=== PATIENT | male | born 1950 | race Caucasian/White ===

== ENCOUNTER 2020-04-09 16:03 | Inpatient (IN) | payer MEDICARE ==
--- NOTE | 2000-04-09 18:00 | NUR ---
admit note Received patient from cardiac cath lab radiology technologist via ICU bed awake and oriented x4 , moves arms and legs well, no c/o discomfort or pain, vasc band at right wrist intact and no bleeding, iv infusion via left ac site intact and patent. Patient given urinal to use for voiding and call light to call for nurse, agrees with nurse and still feels sleepy. Positioned for comfort and informed dinner tray will be given to him when tray arrives from the kitchen.
[2020-04-09] VITALS (9 sets, daily range): BP systolic 116–147; BP diastolic 67–94
[~2020-04-09] VITALS: Ht 188 cm; Wt 101.1 kg
[2020-04-09] MEDS ORDERED: HEPARIN SODIUM (PORCINE) 5000 UNITS/ML 1ML VIAL IV ONE (16:15)
[2020-04-09] MEDS ORDERED: HYDROmorphone HCL 2 MG/ML VL IV ONE (16:15)
[2020-04-09] MEDS ORDERED: ONDANSETRON HCL 4 MG/2 ML VIAL IV ONE ×2 (16:15→16:30)
[2020-04-09] MEDS ORDERED: ONDANSETRON HCL 4 MG/2 ML VIAL ONE (16:25)
[2020-04-09] MEDS ORDERED: LACTULOSE 20Gm/30ML SOLN PO PRN (16:30)
[2020-04-09] MEDS ORDERED: ANGIOMAX 250 MG VIAL IV ONE (16:30)
[2020-04-09] MEDS ORDERED: TEMAZEPAM 15 MG CAP PO PRN (16:30)
[2020-04-09] MEDS ORDERED: SODIUM CHLORIDE 0.9% 1,000 ML IV SCH (16:30)
[2020-04-09] MEDS ORDERED: chlordiazePOXIDE HCL 25 MG CAP PO PRN (16:30)
[2020-04-09] MEDS ORDERED: traMADol HCL 50 MG TAB PO PRN (16:30)
[2020-04-09] MEDS ORDERED: PROMETHAZINE HCL 25 MG/ML 1ML IV PRN (16:30)
[2020-04-09] MEDS ORDERED: NITROGLYCERIN 0.4 MG SL TAB SL PRN (16:30)
[2020-04-09] MEDS ORDERED: THIAMINE 100mg/ml INJ (200mg/2ml VIAL) IV ONE (16:30)
[2020-04-09] MEDS ORDERED: IODIXANOL 320MG/ML 100ML BTL IV ONE (16:31)
[2020-04-09] MEDS ORDERED: fentaNYL CITRATE 100 MCG/2 ML VL ONE (16:31)
[2020-04-09] MEDS ORDERED: LIDOCAINE 2%HCL (LOCAL ANESTH.) INJ 20ML MDV ONE (16:31)
[2020-04-09] MEDS ORDERED: SODIUM CHL 0.9% 50 ML ONE (16:31)
[2020-04-09 16:32] LABS: Eosinophils # (auto) 0.3 10 ^3/uL (0-0.8); Hemoglobin 17.8 g/dL (13.5-17.5); Lymphocytes # (auto) 4.6 10 ^3/uL (0.4-5.4); Monocytes # (auto) 0.8 10 ^3/uL (0-1.3)
[2020-04-09] MEDS ORDERED: VERAPAMIL 2.5MG/ML INJ 2ML VIAL IV ONE (16:32)
[2020-04-09] MEDS ORDERED: MIDAZOLAM HCL 1MG/1ML-2 ML VIAL ONE (16:32)
[2020-04-09] MEDS ORDERED: HEPARIN SODIUM (PORCINE) 5000 UNITS/ML 1ML VIAL ONE ×2 (16:33→17:01)
[2020-04-09 16:34] LABS: Basophils # (auto) 0 10 ^3/uL (0-0.2); Basophils % (auto) 0.5 % (0.0-2.0); Eosinophils % (auto) 2.8 % (0.0-7.0); Hematocrit 52.8 % (41.0-53.0); Lymphocytes % (auto) 46.8 % (10.0-50.0); Mean Corpuscular Hemoglobin 31.8 pg (28.0-32.0); Mean Corpuscular Hgb Conc. 33.6 g/dL (32.0-36.0); Mean Corpuscular Volume 94.6 fL (80.0-100.0); Neutrophils # (auto) 4.1 10 ^3/uL (1.6-8.6); Neutrophils % (auto) 41.9 % (37.0-80.0); Nucleated Red Blood Cells % 0.3 %; Platelet Count (auto) 223 10^3/uL (140-450); Red Blood Cells 5.58 10^6/uL (4.5-5.90); White Blood Cell 9.8 10^3/uL (4.4-10.8)
[2020-04-09 16:45] LABS: Partial Thromboplastin Time 25.4 sec (23.0-31.2)
[2020-04-09 16:51] LABS: Albumin 3.6 g/dL (3.4-5.0); Calcium 8.5 mg/dL (8.5-10.1); Magnesium 2.2 mg/dL (1.6-2.6)
[2020-04-09] MEDS ORDERED: diphenhdrAMINE HCL 50 MG/1 ML VL ONE (16:54)
[2020-04-09 16:55] LABS: Bilirubin, Total 0.3 mg/dL (0.2-1.0); Total Protein 7.2 g/dL (6.4-8.2)
[2020-04-09] MEDS ORDERED: EPTIFIBATIDE INJ (2MG/ML) 10ML VIAL IV ONE (17:25)
[2020-04-09] MEDS ORDERED: EPTIFIBATIDE DRIP(0.75MG/ML) 100 ML IV ONE (17:25)
[2020-04-09] MEDS ORDERED: TICAGRELOR 90 MG TAB ONE (17:52)
--- NOTE | 2020-04-09 17:54 | NUR ---
Pt transferred to ICU 101 via bed in stable condition in semi-fowlers position with cardiac,bp and spo2 monitor connected with acls guidelines in place. Pt on 8lpm of 02 via simple mask. Vasc band noted to right wrist with no active bleeding or hematoma noted. Pt denies pain and respirations are even and unlabored. Pt arrived with integrilin gtt infusing at 15ml/hr. Primary RN at bedside and was updated on pt's current condition and operative findings. All questions answered at this time.
[2020-04-09] MEDS ORDERED: ASPirin 81 mg TAB PO ONE (18:00)
[2020-04-09] MEDS ORDERED: SOD CHL 0.45% 1,000 ML IV SCH (18:00)
[2020-04-09] MEDS ORDERED: TICAGRELOR 90 MG TAB PO ONE (18:00)
--- NOTE | 2020-04-09 19:30 | NUR ---
rn note Report to incoming RN Kenisha and all questions answered.
--- NOTE | 2020-04-09 20:00 | NUR ---
Vasc band deflated w/ 2ml air, bleeding on the site noted and reinflated again with about 5ml air
[2020-04-09] MEDS: HYDROmorphone HCL 2 MG/ML VL IV PRN (20:37)
[2020-04-09] MEDS: chlordiazePOXIDE HCL 5 MG CAP PO SCH (20:38)
--- NOTE | 2020-04-09 21:00 | NUR ---
Deflated vasc band every 15 min until no visible signs of bleeding noted, removed band and covered with gauze dressing with tegaderm. No bruise or other signs of bleeding noted, no complaints made. Instructed to avoid using affected limb
[2020-04-09] MEDS: ENOXAPARIN SOD 100 MG/1 ML SYRINGE SC SCH (21:34)
[2020-04-09] MEDS: ALPRAZolam 0.25 MG TAB PO SCH (21:34)
[2020-04-09] MEDS: ATORVASTATIN 20 MG TAB PO SCH (21:35)
[2020-04-09] MEDS ORDERED: METOPROLOL TARTRATE 25 MG TAB PO SCH (22:00)
[2020-04-09] MEDS ORDERED: ATORVASTATIN 20 MG TAB PO SCH (22:00)
[2020-04-09] MEDS: CARVEDILOL 3.125 MG TAB PO SCH (22:32)
[2020-04-09] MEDS: EPTIFIBATIDE DRIP(0.75MG/ML) 100 ML IV SCH (22:32)
[2020-04-10] VITALS (30 sets, daily range): BP systolic 103–145; BP diastolic 60–90
--- NOTE | 2020-04-10 00:10 | NUR ---
Dtr called, updated on pt's status. all questions and concerns were addressed, verbalized understanding
[2020-04-10] MEDS: EPTIFIBATIDE DRIP(0.75MG/ML) 100 ML IV SCH (00:40)
[2020-04-10] MEDS: HYDROmorphone HCL 2 MG/ML VL IV PRN ×4 (01:03→21:36)
[2020-04-10 04:34] LABS: Basophils # (auto) 0 10 ^3/uL (0-0.2); Basophils % (auto) 0.2 % (0.0-2.0); Eosinophils # (auto) 0.1 10 ^3/uL (0-0.8); Eosinophils % (auto) 0.9 % (0.0-7.0); Hematocrit 50.8 % (41.0-53.0); Hemoglobin 17.2 g/dL (13.5-17.5); Lymphocytes % (auto) 20.8 % (10.0-50.0); Mean Corpuscular Hemoglobin 32.5 pg (28.0-32.0); Mean Corpuscular Hgb Conc. 33.8 g/dL (32.0-36.0); Mean Corpuscular Volume 95.9 fL (80.0-100.0); Monocytes # (auto) 0.8 10 ^3/uL (0-1.3); Monocytes % (auto) 7.9 % (0.0-12.0); Neutrophils # (auto) 6.9 10 ^3/uL (1.6-8.6); Neutrophils % (auto) 70.2 % (37.0-80.0); Platelet Count (auto) 208 10^3/uL (140-450); White Blood Cell 9.9 10^3/uL (4.4-10.8)
[2020-04-10 04:54] LABS: Potassium 4.6 mmol/L (3.5-5.1)
[2020-04-10 05:05] LABS: Albumin 3.3 g/dL (3.4-5.0); BUN/Creatinine Ratio 21.1; Bilirubin, Total 0.4 mg/dL (0.2-1.0); Calcium 8.3 mg/dL (8.5-10.1); Total Protein 6.6 g/dL (6.4-8.2)
[2020-04-10] MEDS: chlordiazePOXIDE HCL 5 MG CAP PO SCH ×3 (05:44→12:25)
[2020-04-10] MEDS: TICAGRELOR 90 MG TAB PO SCH ×2 (05:45→17:29)
[2020-04-10] MEDS: ALPRAZolam 0.25 MG TAB PO SCH ×3 (06:00→21:36)
--- NOTE | 2020-04-10 06:00 | NUR ---
Intergrilin drip off as ordered
--- NOTE | 2020-04-10 07:05 | NUR ---
Paged the hospitalist for breathing tx, per pt he is receiving breathing tx at home, received an order from Dr. Coe for bairon alicea. RN and RT aware
--- NOTE | 2020-04-10 07:15 | NUR ---
Start of Shift Received patient awake and cooperative, blood drawn by medical laboratory scientist, positioned sitting up for breakfast, no pain or discomfort, asking for neb treatment and respiratory called for ordered treatment.
[2020-04-10] MEDS ORDERED: ALBUTEROL SULF 2.5 MG/0.5ML(0.5%) NEB SOLN ONE (07:47)
[2020-04-10] MEDS ORDERED: IPRATROPIUM BROM 0.5 MG/2.5ML INH SOL ONE (07:47)
[2020-04-10] MEDS: IPRATROPIUM BROM 0.5 MG/2.5ML INH SOL NEB PRN ×2 (07:50→20:48)
[2020-04-10] MEDS: ALBUTEROL SULF 2.5 MG/0.5ML(0.5%) NEB SOLN NEB PRN ×2 (07:50→20:49)
[2020-04-10] MEDS ORDERED: ASPirin 81 mg TAB PO SCH (10:00)
[2020-04-10] MEDS ORDERED: ENALAPRIL MALEATE 2.5 MG TAB PO SCH (10:00)
[2020-04-10] MEDS ORDERED: NITROGLYCERIN 0.2MG/HR TOPICAL PATCH TD SCH (10:00)
[2020-04-10] MEDS: LISINOPRIL 10 MG TAB PO SCH (10:00)
[2020-04-10] MEDS: CARVEDILOL 3.125 MG TAB PO SCH (10:00)
[2020-04-10] MEDS: THIAMINE 100mg/ml INJ (200mg/2ml VIAL) IV SCH (10:07)
[2020-04-10] MEDS: ASPirin 81 mg TAB PO SCH (10:07)
[2020-04-10] MEDS: PANTOPRAZOLE 40 MG TAB PO SCH (10:08)
[2020-04-10] MEDS: ENOXAPARIN SOD 100 MG/1 ML SYRINGE SC SCH (10:08)
[2020-04-10] MEDS ORDERED: NICOTINE 21MG/24 HR TOPICAL PATCH TD ONE (12:45)
--- NOTE | 2020-04-10 13:00 | NUR ---
RN NOTES ATTENDING DOCTOR ON ROUNDS AND GAVE ORDER TO TRANSFER PATIENT TO TELEMETRY FLOOR, REMAINS STABLE, ALERT AND ORIENTATED X4, TOLRATING MEALS WELL AND AMBULATION TO COMMODE. HAD BM TODAY.
--- NOTE | 2020-04-10 15:00 | NUR ---
RN NOTES PATIENT GETTING BORED IN THE ROOM, OUT OF BED TO CHAIR, AWARE HE'S WAITING FOR TELEMETRY BED.
--- NOTE | 2020-04-10 16:30 | NUR ---
TRANSFER NOTE ROOM ASSIGNMENT NOTED AT 291 B, REPORT CALLED TO DEBBIE MCGOVERN.
--- NOTE | 2020-04-10 16:45 | NUR ---
TRANSFER NOTES PATIENT PLACED ON TELEMETRY PACK, TO ROOM 291 B VIA WHEEL CHAIR WITH O2 ON AT 2L/MINUTE, REPORT TO DEBBIE SALAS AT TELE FLOOR.
--- NOTE | 2020-04-10 19:30 | NUR ---
Opening Shift Note Assumed care of patient, awake and alert. No S/S of distress/SOB. Fall and safety precautions in place. Call light within reach and to use. Instructed on POC and to call for assist PRN, patient verbalized understanding and in agreement. Will continue to monitor for changes Q1hr and PRN.
[2020-04-10] MEDS: ATORVASTATIN 20 MG TAB PO SCH (21:36)
[2020-04-11 05:00] VITALS: BP 122/67
[2020-04-11] MEDS: TICAGRELOR 90 MG TAB PO SCH (05:36)
[2020-04-11] MEDS: ALPRAZolam 0.25 MG TAB PO SCH (05:36)
--- NOTE | 2020-04-11 08:00 | NUR ---
Received pt resting in bed, call light within reach, pt denies any pain or discomfort at this time, rt wrist incision site open to air, no bruising or swelling noticed, will continue to monitor pt.
[2020-04-11 09:00] VITALS: BP 139/73
[2020-04-11] MEDS: PANTOPRAZOLE 40 MG TAB PO SCH (09:46)
[2020-04-11] MEDS: LISINOPRIL 10 MG TAB PO SCH (09:46)
[2020-04-11] MEDS: THIAMINE 100mg/ml INJ (200mg/2ml VIAL) IV SCH (09:46)
[2020-04-11] MEDS: ASPirin 81 mg TAB PO SCH (09:46)
[2020-04-11] MEDS ORDERED: NICOTINE 21MG/24 HR TOPICAL PATCH TD SCH (10:00)
--- NOTE | 2020-04-11 10:14 | NUR ---
Respiratory note: ASSESSED PT FOR PRN TX, PT WAS AWAKE AND ALERT, NO RESP DISTRESS NOTED. HR 91, RR 16, SPO2 94% ON ROOM AIR. BS ARE DIMINISHED. PT STATED THAT HE DOES NOT FEEL ANY DIFFERENCE WITH ALBUTEROL AND ATROVENT. PT STATED HE USES FLOWVENT INHALER AT HOME. PT IS AWARE TO HAVE RT PAGED IF TX IS NEEDED.
[2020-04-11] MEDS ORDERED: FLU220IH INH (12:35)
[2020-04-11] MEDS ORDERED: IBUP800T24 PO (12:35)
[2020-04-11] MEDS ORDERED: ALPR0.25 PO (12:35)
[2020-04-11 14:09] VITALS: BP 139/73
--- NOTE | 2020-04-11 14:45 | NUR ---
Discharge instructions given as ordered. Encourage to follow up with PMD and with the barometers calibrator Dr. Campuzano as instructed. All questions and concerns addressed. Patient verbalized understanding. Medication reconciliation form completed and copy given to patient. No home medications held in Pharmacy, and no needed vaccines to be given. IV removed with catheter intact, pressure dressing applied. Telemetry unit returned to ICU.
--- NOTE | 2020-04-11 14:53 | NUR ---
Called to [facility] at [phone] to call in pt's prescription as per pt's request, called in Atorvastatin, metoprolol XL succunate, lisinopril, and ticagrelor.
--- NOTE | 2020-04-11 14:53 | NUR ---
Pt stated that his ride will take him to picker tender his prescription and wants the prescription to be called in to [facility], prescription called in at [phone], pt given the prescription as well, unable to get [facility] at [facility], [facility] pharmacy is closed for Sundays.
--- NOTE | 2020-04-11 14:58 | NUR ---
Patient walked out of the hospital with all personal belongings, accompanied by staff member. No distress noted at time of departure.
== END 2020-04-11 14:58 | disposition home or self-care (01) | DRG 247 ==
LOC: ER 16:03 → EDBD 16:03 → EDUNIT# 16:03 → CATH 1 16:14 → ICU WEST 16:15 → TELE-WESTW 04-10 16:53
PROVIDERS: ADMIT Internal Medicine; ATTEND Internal Medicine
PROC: 4A023N7 Measurement of Cardiac Sampling and Pressure, Left Heart, Percutaneous Approach (ICD-10-PCS; principal; 2020-04-09)
PROC: 027034Z Dilation of Coronary Artery, One Artery with Drug-eluting Intraluminal Device, Percutaneous Approach (ICD-10-PCS; 2020-04-09)
PROC: B211YZZ Fluoroscopy of Multiple Coronary Arteries using Other Contrast (ICD-10-PCS; 2020-04-09)
PROC: B215YZZ Fluoroscopy of Left Heart using Other Contrast (ICD-10-PCS; 2020-04-09)
DX: I21.19 ST elevation (STEMI) myocardial infarction involving other coronary artery of inferior wall (principal); J44.9 Chronic obstructive pulmonary disease, unspecified; I10 Essential (primary) hypertension; F41.9 Anxiety disorder, unspecified; F10.10 Alcohol abuse, uncomplicated; F17.200 Nicotine dependence, unspecified, uncomplicated; E66.3 Overweight; Z79.82 Long term (current) use of aspirin; Z79.899 Other long term (current) drug therapy; Z82.49 Family history of ischemic heart disease and other diseases of the circulatory system; Z79.02 Long term (current) use of antithrombotics/antiplatelets; Z68.28 Body mass index [BMI] 28.0-28.9, adult; E78.5 Hyperlipidemia, unspecified
CPT/HCPCS: 36415; 71045; 80053; 80061; 83735; 84484; 85025; 85610; 85730; 87081; 92928; 93306; 93458; 94640; 96374; 96375; 99152; 99153; 99291; A4565; C1874; C1887; G0378; J2250; J2405; Q9967

== ENCOUNTER 2024-07-13 14:11 | Inpatient (IN) | payer MEDICARE, OTHER ==
[2024-07-13] VITALS (7 sets, daily range): BP systolic 95–123; BP diastolic 61–73; PULSE 107–126; RESP 18–20; TEMP 99.2; O2SAT 92–95
[~2024-07-13] VITALS: Ht 180.3 cm; Wt 98.5 kg
[~2024-07-13 14:11] MED LIST: ALPR0.25 PO; FLU220IH INH; IBUP-1456 PO
[2024-07-13] MEDS: methylPREDNISolone SOD SUCC 125 MG/2 ML VL IV ONE ×2 (14:23→23:47)
[2024-07-13] MEDS: methylPREDNISolone SOD SUCC 125 MG/2 ML VL ONE (14:25)
[2024-07-13] MEDS: IPRATROPIUM BROM 0.5 MG/2.5ML INH SOL NEB ONE (14:36)
[2024-07-13] MEDS: ALBUTEROL SULF 2.5 MG/0.5ML(0.5%) NEB SOLN NEB ONE (14:36)
--- NOTE | 2024-07-13 14:44 | ED.PDOC ---
History of Present Illness HPI Comments 74 y/o M is BIBA for c/o shortness of breath, today. Per EMS report, patient endorses on unprovoked onset of difficulty breathing, last night, that has been progressively worsening since, with no relief or improvement with home O2 use. On scene, patient was found on his home O2, with diminished bilateral lung sounds and wheezing. En route, patient was given DuoNeb breathing Tx and placed on 5LPM on CPAP, with improvement. At time of assessment, patient reports no recent injuries, strenuous activities, sick contact, travel, or any additional relevant or pertinent Hx, aside from using 5LPM and 3LPM on his portable and compressor O2 devices, respectively. He denies having any chest pain, palpitations, cough, fever, chills, or other associated symptoms or modifiers at this time. Time Seen by MD: 14:15 Reviewed Notes: Nurses Notes, Home Theater Expert Notes, Medications, Allergies Allergies: Coded Allergies: Morphine (Verified Allergy, Unknown, 04/09/20) Home Meds Reported Medications Ibuprofen (Ibuprofen) 800 Mg Tab, 800 MG PO DAILYP PRN for PAIN SCALE 1-3 OR TEMP>100.4, MG 04/11/20 Alprazolam (Xanax) 0.25 Mg Tb, 0.5 TAB PO DAILY, #30 TAB 04/11/20 Fluticasone Propionate (Flovent Hfa) 220 Mcg Aer, 220 MCG INH Q12HR for 30 Days, MCG 04/11/20 Information Source: Patient, Emergency Med Personnel Mode of Arrival: EMS Severity: Moderate Timing: Days Duration: Since onset Prehospital treatment: 12 Lead EKG, Breathing Tx, Ship Boss, C-Pap, Oxygen Past Medical History PAST MEDICAL HISTORY: Anxiety, COPD, High Lipids, HTN, [place] Surgical History: PTCA Social History Smoker: Quit Less Than 1 Year Alcohol: Occasionally Drugs: Denies Drug Use Lives In: Home Respiratory: reports: shortness of breath All Other Systems: Reviewed and Negative (negative unless otherwise stated above or in HPI) Physical Exam General Appearance: No Apparent Distress, Normal HEENT: Normal ENT Inspection, Pharynx Normal, TMs Normal Neck: Full Range of Motion, Non-Tender, Normal, Normal Inspection Respiratory: Chest Non-Tender, Decreased Breath Sounds (bilaterally), No Accessory Muscle Use, Wheezing (bilaterally) Cardiovascular: No Edema, No JVD, No Murmur, No Gallop, Normal Peripheral Pulses, Regular Rate/Rhythm Breast Exam: Deferred Gastrointestinal: No Organomegaly, Non Tender, No Pulsatile Mass, Normal Bowel Sounds, Soft Genitalia: Deferred Pelvic: Deferred Rectal: Deferred Extremities: No calf tenderness, Normal capillary refill, Normal inspection, Normal range of motion, Non-tender, No pedal edema Musculoskeletal : Apperance: Normal Neurologic: Alert, stoker erector II-XII nml as Tested, No Motor Deficits, Normal Affect, Normal Mood, No Sensory Deficits Cerebellar Function: Normal Reflexes: Normal Skin: Dry, Normal Color, Warm Lymphatic: No Adenopathy Was a procedure done? Was a procedure done?: No EKG EKG : Pulse Rate (adult): 137 [place]: RAD Cardiac Rhythm: ST Block: None Hypertrophy: None ST: Normal Differential Dx Considerations may include: COPD exacerbation, URI, PNA, bronchitis, viral syndrome X-Ray, Labs, Meds, VS Vital Signs Date Time Temp Pulse Resp B/P (MAP) Pulse Ox O2 Delivery O2 Flow Rate FiO2 07/13/24 16:34 118 123/74 Facial BiPAP Mask 40 07/13/24 14:44 137 07/13/24 14:43 18 94 Bi-Pap+ 40 40 07/13/24 14:37 133 128/78 Facial BiPAP Mask 40 07/13/24 14:30 126 18 92 Room Air* 0 21 07/13/24 14:30 97.8 129 18 128/78 (95) 92 97.8 07/13/24 14:28 98.7 135 30 147/72 (97) 82 07/13/24 14:20 137 Lab Test 07/13/24 16:42 07/13/24 16:02 07/13/24 15:18 Range/Units Troponin I High Sensitivity Pending 11 </=54 ng/L Blood Gas Specimen Type Venous Blood Gas Sample Site Other Blood Gas Patient Temperature 37.0 Arterial Blood Date Drawn [id number] Isaiah Test N/a Venous Blood pH 7.345 7.320-7.430 Venous Blood pCO2 at Patient Temp 52.7 38.0-54.0 mmHg Venous Blood pO2 at Patient Temp < 36.5 23.0-48.0 mmHg Venous Blood HCO3 28.1 22.0-29.0 mmol/L Venous Blood Base Excess 1.4 -2.0-3.0 mmol/L Blood Gas Liter Flow 2.50 Blood Gas Modality Nasal cannula FiO2 % 30.0 White Blood Count 10.0 4.4-10.8 10^3/uL Red Blood Count 5.32 4.5-5.90 10^6/uL Hemoglobin 17.4 13.5-17.5 g/dL Hematocrit 51.8 41.0-53.0 % Mean Corpuscular Volume 97.4 80.0-100.0 fL Mean Corpuscular Hemoglobin 32.8 H 28.0-32.0 pg Mean Corpuscular Hemoglobin Concent 33.6 32.0-36.0 g/dL Red Cell Distribution Width 14.0 11.8-14.3 % Platelet Count 197 140-450 10^3/uL Mean Platelet Volume 7.9 6.9-10.8 fL Neutrophils (%) (Auto) 88.1 H 37.0-80.0 % Lymphocytes (%) (Auto) 4.9 L 10.0-50.0 % Monocytes (%) (Auto) 6.9 0.0-12.0 % Eosinophils (%) (Auto) 0.0 0.0-7.0 % Basophils (%) (Auto) 0.1 0.0-2.0 % Neutrophils # (Auto) 8.8 H 1.6-8.6 10 ^3/uL Lymphocytes # (Auto) 0.5 0.4-5.4 10 ^3/uL Monocytes # (Auto) 0.7 0-1.3 10 ^3/uL Eosinophils # (Auto) 0 0-0.8 10 ^3/uL Basophils # (Auto) 0 0-0.2 10 ^3/uL Nucleated Red Blood Cells 0.1 % Sodium Level 134 L 136-145 mmol/L Potassium Level 4.5 3.5-5.1 mmol/L Chloride Level 97 L 98-107 mmol/L Carbon Dioxide Level 30 20-31 mmol/L Anion Gap 7 5-15 Blood Urea Nitrogen 21 9-23 mg/dL Creatinine 0.93 0.700-1.30 mg/dL Glomerular Filtration Rate Calc 87 >90 mL/min BUN/Creatinine Ratio 22.6 H 10.0-20.0 Serum Glucose 105 74-106 mg/dL Calcium Level 9.7 8.7-10.4 mg/dL Total Bilirubin 1.0 0.2-1.0 mg/dL Aspartate Amino Transferase (AST) 33 13-40 U/L Alanine Aminotransferase (ALT) 29 7-40 U/L Alkaline Phosphatase 135 H 46-116 U/L B-Type Natriuretic Peptide 29.00 0-100 pg/mL Total Protein 7.4 5.7-8.2 g/dL Albumin 4.7 3.2-4.8 g/dL Current Medications Medications (Trade) Dose Ordered Sig/Grace Route Start Time Stop Time Status Last Admin Albuterol (Ventolin Medneb) 5 mg ONCE ONCE NEB 07/13/24 14:30 07/13/24 14:31 DC 07/13/24 14:36 Ipratropium Douglas (Atrovent Medneb) 0.5 mg ONCE ONCE NEB 07/13/24 14:30 07/13/24 14:31 DC 07/13/24 14:36 Methylprednisolone Sodium Succinate (Solu Medrol) 62.5 mg ONCE ONCE IV 07/13/24 14:30 07/13/24 14:31 DC 07/13/24 14:23 Azithromycin 250 ml @ 125 mls/hr ONCE ONCE IV 07/13/24 14:30 07/13/24 16:29 DC 07/13/24 14:55 Ondansetron HCl (Zofran) 4 mg ONCE ONCE IV 07/13/24 15:30 07/13/24 15:31 DC 07/13/24 15:23 Time of 1ST Reevaluation: 14:45 Reevaluation 1ST: Unchanged Patient Education/Counseling: Diagnosis, Treatment Family Education/Counseling: No Family Present Additional Information I reviewed the following notes from patient's past medical encounters: discharge summary report on 04/11/20 The following tests were ordered, and results were reviewed by me: EKG, CXR, CMP, CBC, BETA QUANT, BNP Additional Information was gathered from interviewing the following independent historians: EMT I reviewed and agreed with the following test results read by other providers: CXR I discussed treatment and results with medical personnel Departure 1 Departure Time of Disposition: 17:04 (Patient presented with acute shortness of breath concerning for acute on chronic COPD Exacerbation, Pneumonia, ACS, CHF, Pneumothorax. Less likely PE, Dissection. Data: 1. I ordered and reviewed the result of at least 3 labs including a CBC, BMP, and Troponin. 2. I independently interpreted the following tests: Chest X-ray shows .Risk:This patient has a high risk of morbidity due to further diagnostic testing or treatment and may suffer from respiratory or cardiac etiology . Workup reveals a likely COPD Exacerbation and patient should be admitted for further workup. and possible expert consultation.) Impression: Primary Impression: Acute respiratory failure Qualified Codes: J96.01 - Acute respiratory failure with hypoxia Additional Impression: COPD exacerbation Disposition: ADMITTED INPATIENT Admit to: Med Surg Condition: Serious Critical Care Note Critical Care Time?: Yes Critical care comment: Acute respiratory failure Authorized and Performed by: Geeta Chavira MD Total critical care time: Approximately 38 minutes Due to a high probability of clinically significant, life threatening deterioration, the patient required my highest level of preparedness to intervene emergently and I personally spent this critical care time directly and personally managing the patient. This critical care time included obtaining a history; examining the patient; pulse oximetry; ordering and review of studies; arranging urgent treatment with development of a management plan; evaluation of patient's response to treatment; frequent reassessment; and, discussions with other providers. This critical care time was performed to assess and manage the high probability of imminent, life-threatening deterioration that could result in multi-organ failure. It was exclusive of separately billable procedures and treating other patients and teaching time. Please see my other sections and the rest of the note for further information on patient assessment and treatment. Stability Stability form required: No Heart Score Heart Score: Heart Score Response (Comments) Value History N/A 0 EKG N/A 0 Age N/A 0 Risk Factors N/A 0 Troponin N/A 0 Total 0 I personally scribed for GEETA CHAVIRA MD ([email or web address]) on 07/13/24 at 14:44. Electronically submitted by Antonio Garcia [email or web address]). GEETA CHAVIRA MD Jul 13, 2024 14:44
[2024-07-13] MEDS: AZITHROMYCIN 500MG/ 250ML 250 ML IV ONE (14:55)
--- NOTE | 2024-07-13 15:03 | DVH ---
CHEST RADIOGRAPH Indication: sob Technique: Single frontal view of the chest was obtained Comparison: CHEST PORTABLE on DOS: 04/09/20 FINDINGS: Lines and Tubes: None Lungs: No focal consolidation. Bibasilar curvilinear densities. Pleura: No effusion. No pneumothorax. Cardiomediastinal contours: Unremarkable Bones: No acute osseous abnormality. IMPRESSION: Bibasilar atelectasis. Otherwise, no evidence of acute cardiopulmonary disease.
[2024-07-13] MEDS: ONDANSETRON HCL 4 MG/2 ML VIAL IV ONE (15:23)
[2024-07-13 15:48] LABS: Basophils # (auto) 0 10 ^3/uL (0-0.2); Basophils % (auto) 0.1 % (0.0-2.0); Eosinophils # (auto) 0 10 ^3/uL (0-0.8); Hematocrit 51.8 % (41.0-53.0); Hemoglobin 17.4 g/dL (13.5-17.5); Lymphocytes # (auto) 0.5 10 ^3/uL (0.4-5.4); Lymphocytes % (auto) 4.9 % (10.0-50.0); Mean Corpuscular Hemoglobin 32.8 pg (28.0-32.0); Mean Corpuscular Hgb Conc. 33.6 g/dL (32.0-36.0); Mean Corpuscular Volume 97.4 fL (80.0-100.0); Monocytes # (auto) 0.7 10 ^3/uL (0-1.3); Monocytes % (auto) 6.9 % (0.0-12.0); Neutrophils # (auto) 8.8 10 ^3/uL (1.6-8.6); Neutrophils % (auto) 88.1 % (37.0-80.0); Nucleated Red Blood Cells % 0.1 %; Platelet Count (auto) 197 10^3/uL (140-450); Red Blood Cells 5.32 10^6/uL (4.5-5.90)
[2024-07-13 15:54] LABS: Alanine Aminotransferase 29 U/L (7-40); Albumin 4.7 g/dL (3.2-4.8); Anion Gap 7 (5-15); Aspartate Aminotransferase 33 U/L (13-40); BUN/Creatinine Ratio 22.6 (10.0-20.0); Blood Urea Nitrogen 21 mg/dL (9-23); Calcium 9.7 mg/dL (8.7-10.4); Carbon Dioxide 30 mmol/L (20-31); Glucose 105 mg/dL (74-106); Potassium 4.5 mmol/L (3.5-5.1); Total Protein 7.4 g/dL (5.7-8.2)
[2024-07-13 16:13] LABS: Alkaline Phosphatase 135 U/L (46-116); Chloride 97 mmol/L (98-107); Sodium 134 mmol/L (136-145)
[2024-07-13] MEDS ORDERED: ONDANSETRON HCL 4 MG/2 ML VIAL IV ONE (18:15)
[2024-07-13] MEDS ORDERED: MORPHINE SULFATE 4 MG/ML SYR/VIAL IV ONE (18:15)
[2024-07-13] MEDS: KETOROLAC TROMETH 30 MG/ML 1ML VIAL IV ONE (18:31)
[2024-07-13 23:53] LABS: Base Excess -0.2 mmol/L (-2.0-3.0)
[2024-07-14] VITALS (16 sets, daily range): BP systolic 110–127; BP diastolic 48–80; PULSE 94–150; RESP 14–22; O2SAT 89–96
[2024-07-14] MEDS: OXYCODONE W/ ACETAMINOPHEN 5/325MG TABLET PO ONE (00:04)
[2024-07-14] MEDS: IPRATROPIUM BROM 0.5 MG/2.5ML INH SOL NEB ONE (00:16)
[2024-07-14] MEDS: ALBUTEROL SULF 2.5 MG/0.5ML(0.5%) NEB SOLN NEB ONE ×2 (00:16→08:46)
[2024-07-14 01:02] LABS: COVID19 ANTIGEN SOFIA FIA NEGATIVE (NEGATIVE); Rapid Influenza A Negative (Negative); Rapid Influenza B Negative (Negative)
[2024-07-14 01:47] LABS: Basophils # (auto) 0 10 ^3/uL (0-0.2); Basophils % (auto) 0.1 % (0.0-2.0); Eosinophils # (auto) 0 10 ^3/uL (0-0.8); Hematocrit 49.9 % (41.0-53.0); Hemoglobin 16.6 g/dL (13.5-17.5); Lymphocytes # (auto) 0.4 10 ^3/uL (0.4-5.4); Lymphocytes % (auto) 4.8 % (10.0-50.0); Mean Corpuscular Hemoglobin 32.5 pg (28.0-32.0); Mean Corpuscular Hgb Conc. 33.2 g/dL (32.0-36.0); Mean Corpuscular Volume 98.1 fL (80.0-100.0); Monocytes # (auto) 0.3 10 ^3/uL (0-1.3); Monocytes % (auto) 3.6 % (0.0-12.0); Neutrophils # (auto) 8.4 10 ^3/uL (1.6-8.6); Neutrophils % (auto) 91.5 % (37.0-80.0); Platelet Count (auto) 168 10^3/uL (140-450); Red Blood Cells 5.09 10^6/uL (4.5-5.90); Red Cell Distribution Width 14.1 % (11.8-14.3); White Blood Cell 9.2 10^3/uL (4.4-10.8)
[2024-07-14 01:59] LABS: Alanine Aminotransferase 29 U/L (7-40); Anion Gap 8 (5-15); Aspartate Aminotransferase 38 U/L (13-40); BUN/Creatinine Ratio 27.4 (10.0-20.0); Calcium 9.4 mg/dL (8.7-10.4); Carbon Dioxide 27 mmol/L (20-31); Chloride 99 mmol/L (98-107); Potassium 4.8 mmol/L (3.5-5.1)
[2024-07-14 02:00] LABS: Albumin 4.4 g/dL (3.2-4.8); Bilirubin, Total 0.7 mg/dL (0.2-1.0)
[2024-07-14] MEDS ORDERED: hydrALAZINE HCL 20 MG/ML VL IV PRN (02:00)
[2024-07-14 02:02] LABS: Alkaline Phosphatase 120 U/L (46-116); Blood Urea Nitrogen 26 mg/dL (9-23); Glucose 152 mg/dL (74-106); Sodium 134 mmol/L (136-145)
[2024-07-14] MEDS: IPRATROPIUM BROM 0.5 MG/2.5ML INH SOL NEB SCH (02:39)
[2024-07-14] MEDS: ALBUTEROL SULF 2.5 MG/0.5ML(0.5%) NEB SOLN NEB SCH (02:39)
--- NOTE | 2024-07-14 03:39 | DVHHPRES ---
History of Present Illness Resident Creating Document: HEMANTHHARISHAMADO RESIDENT History of Present Illness Patient is a 74-year-old male with a past medical history of ME in 2020 s/p PTCA 1 stent, COPD stage IV, chronic pain, osteoarthritis came to the ED with a chief complaint of worsening shortness of breath. Patient reports since the last 2 months he has been having shortness of breath which he manages with as needed nebulizer 3 times a day which was working for him till 3-4 days ago with the shortness of breath worsened and patient did not get relieved from with the nebulizer. Patient came to the hospital today SpO2 on arrival was 82% in the patient was put on nasal cannula, SpO2 was still low and the patient was put on a BiPAP. Chest x-ray shows hyperinflation of the lungs. WBC 16187 with left shift, COVID and influenza were negative. Past medical history:ME in 2019 s/p PTCA 1 stent, COPD stage IV, chronic pain, osteoarthritis Past surgical history: Surgery for perforated colon, inguinal hernia, craniotomy, PTCA X 1 Social history: Patient has a 55 pack year smoking history but now smokes about 3-4 cigarettes per day, drinks beer about 2-3 times in a week, denies drugs Home medications: Lisinopril 2.5 mg, atorvastatin 40 mg, duloxetine, Percocet, bisoprolol Review of Systems Review of Systems Patient reports feeling better since the time he has been BiPAP. Reports feeling uncomfortable on the bed with back pain. Denies headache, chest pain, dizziness. Denies dysuria, abdominal pain nausea, vomiting, diarrhea Allergies: Coded Allergies: Morphine (Verified Allergy, Unknown, 04/09/20) Medications Current Medications Medications Dose Ordered Sig/Grace Route Start Time Stop Time Status Last Admin Dose Admin Albuterol 2.5 mg Q4HR NEB 07/14/24 02:00 07/14/24 02:39 2.5 MG Ipratropium Muse 0.5 mg Q4HR NEB 07/14/24 02:00 07/14/24 02:39 0.5 MG Methylprednisolone Sodium Succinate 40 mg BID IV 07/14/24 10:00 Levofloxacin/ Dextrose 150 ml @ 100 mls/hr DAILY IV 07/14/24 10:00 Oxycodone/ Acetaminophen 1 tab Q4HP PRN PO 07/14/24 02:00 Duloxetine HCl 30 mg DAILY PO 07/14/24 10:00 Atorvastatin Calcium 40 mg HS PO 07/14/24 22:00 Hydralazine HCl 10 mg Q6HP PRN IV 07/14/24 02:00 Exam Vital Signs Vital Signs Date Time Temp Pulse Resp B/P (MAP) Pulse Ox O2 Delivery O2 Flow Rate FiO2 07/14/24 02:39 94 124/60 93 Facial BiPAP Mask 40 07/14/24 00:00 18 07/13/24 21:18 99.2 99.2 07/13/24 20:33 4 Exam Physical Examination Constitutional: Patient is alert and oriented to time, place and person and appears to be in acute respiratory distress with the use of accessory muscles of respiration and increased work of breathing on BiPAP. Gen - no pallor, no icterus, no cyanosis, no clubbing, no LAD, no edema . Skin - Patients skin is warm and dry. HEENT - normocephalic, atraumatic, dry mucous membranes. Neck - full ROM, no LAD, no JVD Pulmonary - breath sounds severely diminished bilaterally ( like a silent chest ) , no wheezing heard. cardiovascular - faint S1,S2 heard. peripheral pulses radial 2+, pedal 1+. GI - soft abdomen without tenderness to palpation . no hepatospleenomegaly. Bowel sounds normoactive Neurological - Bilateral upper extremity strength 5/5, bilateral lower extremity strength 5/5, no facial droop, normal speech, no tremor, no sensory deficiets. Labs/Xrays Labs Test 07/14/24 01:43 07/14/24 01:28 07/14/24 00:18 07/13/24 23:41 Range/Units Blood Gas Specimen Type Arterial Blood Gas Sample Site Right radial Blood Gas Patient Temperature 37.0 Arterial Blood Date Drawn [id number] Arterial Blood pH 7.283 L 7.350-7.450 Arterial Blood Partial Pressure CO2 64.5 *H 35.0-48.0 mmHg Arterial Blood Partial Pressure O2 92.6 83.0-108.0 mmHg Arterial Blood HCO3 29.8 H 21.0-28.0 mmol/L Arterial Blood Oxygen Saturation 96.4 94.0-98.0 % Arterial Blood Base Excess 1.0 -2.0-3.0 mmol/L Arterial Blood Oxyhemoglobin 95.0 94.0-98.0 % Arterial Blood Carboxyhemoglobin 0.9 0.5-1.5 % Arterial Blood Methemoglobin 0.6 0.0-1.5 % Isaiah Test Modified Blood Gas Total Hemoglobin 17.10 13.5-17.5 g/dL Blood Gas Set Respiration Rate 15.0 Blood Gas Modality Mask - bipap FiO2 % 40.0 Blood Gas EPAP 5 Blood Gas IPAP 15 Blood Gas Critical Value Read Back Yes Blood Gas Notified Whom kishan Ventura md Blood Gas Notified Time [id number] Blood Gas Notified By phan Ramirez rrt White Blood Count 9.2 4.4-10.8 10^3/uL Red Blood Count 5.09 4.5-5.90 10^6/uL Hemoglobin 16.6 13.5-17.5 g/dL Hematocrit 49.9 41.0-53.0 % Mean Corpuscular Volume 98.1 80.0-100.0 fL Mean Corpuscular Hemoglobin 32.5 H 28.0-32.0 pg Mean Corpuscular Hemoglobin Concent 33.2 32.0-36.0 g/dL Red Cell Distribution Width 14.1 11.8-14.3 % Platelet Count 168 140-450 10^3/uL Mean Platelet Volume 7.8 6.9-10.8 fL Neutrophils (%) (Auto) 91.5 H 37.0-80.0 % Lymphocytes (%) (Auto) 4.8 L 10.0-50.0 % Monocytes (%) (Auto) 3.6 0.0-12.0 % Eosinophils (%) (Auto) 0.0 0.0-7.0 % Basophils (%) (Auto) 0.1 0.0-2.0 % Neutrophils # (Auto) 8.4 1.6-8.6 10 ^3/uL Lymphocytes # (Auto) 0.4 0.4-5.4 10 ^3/uL Monocytes # (Auto) 0.3 0-1.3 10 ^3/uL Eosinophils # (Auto) 0 0-0.8 10 ^3/uL Basophils # (Auto) 0 0-0.2 10 ^3/uL Nucleated Red Blood Cells 0.0 % Sodium Level 134 L 136-145 mmol/L Potassium Level 4.8 3.5-5.1 mmol/L Chloride Level 99 98-107 mmol/L Carbon Dioxide Level 27 20-31 mmol/L Anion Gap 8 5-15 Blood Urea Nitrogen 26 H 9-23 mg/dL Creatinine 0.95 0.700-1.30 mg/dL Glomerular Filtration Rate Calc 85 >90 mL/min BUN/Creatinine Ratio 27.4 H 10.0-20.0 Serum Glucose 152 H 74-106 mg/dL Calcium Level 9.4 8.7-10.4 mg/dL Total Bilirubin 0.7 0.2-1.0 mg/dL Aspartate Amino Transferase (AST) 38 13-40 U/L Alanine Aminotransferase (ALT) 29 7-40 U/L Alkaline Phosphatase 120 H 46-116 U/L Total Protein 7.0 5.7-8.2 g/dL Albumin 4.4 3.2-4.8 g/dL Influenza Type A Antigen Negative Negative Influenza Type B Antigen Negative Negative SARS-CoV-2 Antigen (Rapid) Negative NEGATIVE Specimen Drawn By Dasha poeelas mechanic's assistant Test 07/13/24 18:50 07/13/24 16:02 07/13/24 15:18 Range/Units Troponin I High Sensitivity 12 </=54 ng/L Venous Blood pH 7.345 7.320-7.430 Venous Blood pCO2 at Patient Temp 52.7 38.0-54.0 mmHg Venous Blood pO2 at Patient Temp < 36.5 23.0-48.0 mmHg Venous Blood HCO3 28.1 22.0-29.0 mmol/L Venous Blood Base Excess 1.4 -2.0-3.0 mmol/L Blood Gas Liter Flow 2.50 B-Type Natriuretic Peptide 29.00 0-100 pg/mL Assessment/Plan Assessment/Plan # acute hypoxic respiratory failure # acute on chronic respiratory acidosis # acute exacerbation of COPD # suspected community-acquired pneumonia likely due to Gram- versus atypical bacteria - ABG trends PH 7.28 --> 7.283 -->7.27 PCO2 61.7--> 64.5--> 69.8 HC03 28.5--> 29.8--> 31.4 patient is on BiPAP IPAP 12 --> 15 --> 22 EPAP 5--> 6 FiO2 40% - methylprednisone 62.5 X 2 given - on methylprednisolone 40 mg b.i.d. IV - azithromycin 500 mg IV given - on levofloxacin 750 mg IV daily - DuoNebs albuterol 2.5 and ipratropium 0.5 mg q.4 hours - 1 time 10 mg albuterol med neb over 1 hour continuous given # history of CAD # hypertensive heart disease - on atorvastatin 40 mg hs - home blood pressure medications lisinopril, bisoprolol held because of soft blood pressure - on hydralazine 10 mg p.r.n. for SBP more than 160mmhg # chronic pain syndrome - on duloxetine 30 mg daily - Percocet 11/15/2024 q.4 hours p.r.n. DVT prophylaxis: Enoxaparin 40 mg sc q.d. Goals of care discussed with the patient for over 27 minutes. Full code Plan discussed with Dr. Easley Plan discussed with: Patient My Orders Orders - AMADO HERNANDEZ RESIDENT Procedure Category Date Status Time Admit ADMIT 07/13/24 Transmitted 22:52 Oxygen By Nasal RT 07/13/24 Transmitted Cannula 22:52 Notify Of Changes LEONIE 07/13/24 In Process From Base 22:52 Crop Picker For LEONIE 07/13/24 In Process 24 Hours 22:52 Emergency Dysrhythmia LEONIE 07/13/24 In Process Protocol 22:52 Stat Ekg For Chest LEONIE 07/13/24 In Process Pain 22:52 Urinalysis LAB 07/13/24 Logged 23:05 Drug Screen LAB 07/13/24 Logged 23:05 Albuterol Medneb PHA 07/14/24 In Process (Ventolin Medneb) 02:00 Ipratropium Medneb PHA 07/14/24 In Process (Atrovent Medneb) 02:00 Methylprednisolone PHA 07/14/24 In Process Sod Succ (Solu Medrol 10:00 Abg W/ Co-Ox RT 07/13/24 Logged 23:05 Levofloxacin 750mg PHA 07/14/24 In Process (Levaquin) 10:00 BIPAP RT 07/14/24 Logged 00:03 Abg W/ Co-Ox RT 07/14/24 Logged 01:30 Oxycodone W/ Acet PHA 07/14/24 In Process 5/325mg Tab (Percocet 02:00 Duloxetine Hcl PHA 07/14/24 In Process Capsule (Cymbalta 10:00 Atorvastatin (Lipitor) PHA 07/14/24 In Process 22:00 Hydralazine Injection PHA 07/14/24 In Process (Apresoline Inject 02:00 BIPAP RT 07/14/24 Logged 02:39 Abg W/ Co-Ox RT 07/14/24 Logged 04:30 Date of Service: Jul 13, 2024 Billing Provider: LADI EASLEY MD Common Visit Codes: [id number] INP/OBS CARE (HIGH) Secondary Visit Codes: [id number] CARE PLAN 30 MINUTES AMADO HERNANDEZ RESIDENT Jul 14, 2024 03:39 LADI EASLEY MD Jul 15, 2024 10:41
[2024-07-14 04:11] LABS: Base Excess 1.9 mmol/L (-2.0-3.0)
[2024-07-14] MEDS ORDERED: ALBUTEROL SULF 2.5 MG/0.5ML(0.5%) NEB SOLN NEB ONE (05:00)
[2024-07-14 06:37] LABS: Urine Bacteria None Seen /hpf (None Seen)
[2024-07-14 07:03] LABS: Urine Blood 3+ /uL (Negative); Urine Budding Yeast OCCASIONAL /hpf (None Seen); Urine Clarity Clear (Clear); Urine Color Yellow (Yellow); Urine Hyaline Cast MOD /lpf (0 - 2); Urine Mucus FEW (None Seen); Urine Protein, UAD 1+ (Negative); Urine Specific Gravity 1.029 (1.001-1.035); Urine Squamous Epithelial Cell FEW /hpf (<5); Urine Urobilinogen Normal (Negative); Urine WBC 3 /hpf (0 - 3); Urine pH 5.5 (5.0-9.0)
[2024-07-14 07:15] LABS: Opiate Scree,Urine Neg (NEGATIVE)
[2024-07-14 07:16] LABS: Amphetamine Screen, Urine Neg (NEGATIVE); Barbiturate Scree,Urine Neg (NEGATIVE); Benzodiazephine Screen, Urine Neg (NEGATIVE); Cannabinoid Screen, Urine Neg (NEGATIVE); Cocaine Screen, Urine Neg (NEGATIVE); Phencyclidine Screen, Urine Neg (NEGATIVE)
[2024-07-14 08:38] LABS: Base Excess 2.1 mmol/L (-2.0-3.0)
--- NOTE | 2024-07-14 09:05 | DVHPNRES ---
Progress Note Date Seen: Jul 14, 2024 Resident Creating Document: DANIEL AMANDA Objective vital signs Vital Sign Date Time Temp Pulse Resp B/P (MAP) Pulse Ox O2 Delivery O2 Flow Rate FiO2 07/14/24 08:13 152 07/14/24 07:44 98.3 19 118/47 (70) 93 98.3 07/14/24 07:44 Bi-Pap+ 6 60 60 medications Current Medications Medications Dose Ordered Sig/Grace Route Start Time Stop Time Status Last Admin Dose Admin Albuterol 2.5 mg Q4HR NEB 07/14/24 02:00 07/14/24 02:39 2.5 MG Ipratropium [place] 0.5 mg Q4HR NEB 07/14/24 02:00 07/14/24 02:39 0.5 MG Methylprednisolone Sodium Succinate 40 mg BID IV 07/14/24 10:00 Levofloxacin/ Dextrose 150 ml @ 100 mls/hr DAILY IV 07/14/24 10:00 Oxycodone/ Acetaminophen 1 tab Q4HP PRN PO 07/14/24 02:00 Duloxetine HCl 30 mg DAILY PO 07/14/24 10:00 Atorvastatin Calcium 40 mg HS PO 07/14/24 22:00 Hydralazine HCl 10 mg Q6HP PRN IV 07/14/24 02:00 Enoxaparin Sodium 40 mg DAILY SC 07/14/24 10:00 laboratory and microbiology Laboratory Tests 07/14/24 01:28 Test 07/14/24 01:28 Range/Units Serum Glucose 152 H 74-106 mg/dL Labs and/or images reviewed: Labs reviewed by me, Image(s) reviewed by me Problem List/Assessment/Plan Plan discussed with: Patient, Other My Orders My Orders Orders - DANIEL AMANDA Procedure Category Date Status Time Abg W/ Co-Ox RT 07/14/24 Logged 08:28 DANIEL AMANDA Jul 14, 2024 09:05
[2024-07-14] MEDS: methylPREDNISolone SOD SUCC 40 MG/ML VL IV SCH ×3 (09:38→21:35)
[2024-07-14] MEDS: ENOXAPARIN SOD 40 MG/0.4 ML SYRINGE SC SCH (09:38)
[2024-07-14] MEDS: levoFLOXacin 750MG 150 ML IV SCH (09:39)
[2024-07-14] MEDS: DULoxetine HCL 30 MG CAP PO SCH (09:53)
[2024-07-14] MEDS: OXYCODONE W/ ACETAMINOPHEN 5/325MG TABLET PO PRN (09:54)
--- NOTE | 2024-07-14 11:32 | DVH ---
CHEST RADIOGRAPH Indication: SOB Technique: Single frontal view of the chest was obtained COMPARISON: XY CHEST PORTABLE on DOS: 07/13/24, CHEST PORTABLE on DOS: 04/09/20 FINDINGS: Lines and Tubes: None Lungs: Clear Pleura: No effusion. No pneumothorax. Cardiomediastinal contours: Unremarkable Bones: Unremarkable IMPRESSION: No acute disease.
[2024-07-14] MEDS: LORazepam 2MG/ML-1ML VIAL IV PRN (14:02)
--- NOTE | 2024-07-14 15:42 | DVHPN2 ---
Progress Note Date Seen: Jul 14, 2024 Medical Necessity Reason Pt with a Central, PICC or Fol: No Subjective Patient reports: No new complaints Review of Systems: HEENT:Normal, CVS:Normal, RESPIRATORY:Normal, GI:Normal, :Normal, MSK:Normal, NEURO:Normal Objective vital signs Vital Sign Date Time Temp Pulse Resp B/P (MAP) Pulse Ox O2 Delivery O2 Flow Rate FiO2 07/14/24 15:01 129 26 106/65 (79) 91 07/14/24 14:01 Oxymizer 8 N/A 07/14/24 07:44 98.3 98.3 medications Current Medications Medications Dose Ordered Sig/Grace Route Start Time Stop Time Status Last Admin Dose Admin Albuterol 2.5 mg Q4HR NEB 07/14/24 02:00 07/14/24 14:01 2.5 MG Ipratropium [place] 0.5 mg Q4HR NEB 07/14/24 02:00 07/14/24 14:01 0.5 MG Levofloxacin/ Dextrose 150 ml @ 100 mls/hr DAILY IV 07/14/24 10:00 07/14/24 09:39 100 MLS/HR Oxycodone/ Acetaminophen 1 tab Q4HP PRN PO 07/14/24 02:00 07/14/24 09:54 1 TAB Duloxetine HCl 30 mg DAILY PO 07/14/24 10:00 07/14/24 09:53 30 MG Atorvastatin Calcium 40 mg HS PO 07/14/24 22:00 Hydralazine HCl 10 mg Q6HP PRN IV 07/14/24 02:00 Enoxaparin Sodium 40 mg DAILY SC 07/14/24 10:00 07/14/24 09:38 40 MG Methylprednisolone Sodium Succinate 40 mg Q6HR IV 07/14/24 11:00 07/14/24 13:19 40 MG Lorazepam 0.5 mg Q8HP PRN IV 07/14/24 13:15 07/14/24 14:02 0.5 MG Examination: GENERAL:Normal, HEENT:Normal, NECK:Normal, LUNGS:Normal, LUNGS:Abnormal (on bipap), CVS:Normal, ABDOMEN:Normal, MSK:Normal, SKIN:Normal, NEURO:Normal, :Normal laboratory and microbiology Laboratory Tests 07/14/24 01:28 Test 07/14/24 01:28 Range/Units Serum Glucose 152 H 74-106 mg/dL Problem List/Assessment/Plan Problem List/Assessment/Plan #1 acute resp failure: bipap as required #2 copd with exacerbation: iv steroids, bronchodilators #3 ?pneumonia- gram positive/neg: levaquin #4 htn #5 tobacco abuse: advised to quit, refused nicotine patch- time spent 11 mins #6 cad s/p stent #7 hyperlipidemia Plan discussed with: Patient My Orders My Orders Orders - NOA BROWN MD Procedure Category Date Status Time Lorazepam 2mg/Ml Inj PHA 07/14/24 In Process (Ativan Inj) 13:15 Methylprednisolone PHA 07/14/24 Verified Sod Succ (Solu Medrol 22:00 Aspirin Tablet PHA 07/15/24 Verified 10:00 Basic Metabolic Panel LAB 07/15/24 Verified 06:00 Complete Blood Count LAB 07/15/24 Verified 06:00 Pantoprazole PHA 07/15/24 Verified (Protonix) 10:00 Pantoprazole PHA 07/14/24 Verified (Protonix) 15:45 Critical Care Time (mins): 38 (critical care time 38 mins) Date of Service: Jul 14, 2024 Billing Provider: NOA BROWN MD Common Visit Codes: [id number] CARE 30-74 MIN Secondary Visit Codes: [id number] CHNG SMOKING >10MIN NOA BROWN MD Jul 14, 2024 15:42
[2024-07-14] MEDS: PANTOPRAZOLE 40 MG/10 ML VIAL INJ IV ONE (16:19)
[2024-07-14 16:58] LABS: Base Excess 3.6 mmol/L (-2.0-3.0)
--- NOTE | 2024-07-14 18:19 | ECG ---
[facility] Test Date: 2024-07-14 Test Time: 12:51:23 Pat Name: OSCAR GUILLERMO Department: er Room: [address] [place] [address] Gender: M Category Director: ramesh : 1950 Requested By: ELSIEO MONTES DE OCA Order Number: [id number] Reading MD: Laverne Sun Measurements Intervals [place] Rate: 111 P: 0 [place]: 0 QRS: 73 QRSD: 73 T: 88 QT: 408 QTc: 555 Interpretive Statements Normal sinus rhythm with frequent PACs Low voltage, extremity and precordial leads Nonspecific T abnormalities, lateral leads Borderline prolonged QT interval Electronically Signed On 07-14-2024 22:25:26 PST by Laverne Sun Please click the below link to view image of tracing.
[2024-07-14] MEDS: ATORVASTATIN 20 MG TAB PO SCH (21:35)
[2024-07-14 22:09] LABS: Base Excess 1.5 mmol/L (-2.0-3.0)
[2024-07-15] VITALS (15 sets, daily range): BP systolic 113–127; BP diastolic 54–70; PULSE 97–125; RESP 20–31; O2SAT 90–96
[2024-07-15 02:23] LABS: Base Excess 3.2 mmol/L (-2.0-3.0)
[2024-07-15 04:16] LABS: Base Excess 4.3 mmol/L (-2.0-3.0)
[2024-07-15 05:11] LABS: Basophils # (auto) 0 10 ^3/uL (0-0.2); Basophils % (auto) 0.1 % (0.0-2.0); Eosinophils # (auto) 0 10 ^3/uL (0-0.8); Hematocrit 47.7 % (41.0-53.0); Hemoglobin 15.9 g/dL (13.5-17.5); Lymphocytes # (auto) 0.4 10 ^3/uL (0.4-5.4); Lymphocytes % (auto) 3.5 % (10.0-50.0); Mean Corpuscular Hemoglobin 32.6 pg (28.0-32.0); Mean Corpuscular Hgb Conc. 33.3 g/dL (32.0-36.0); Mean Corpuscular Volume 97.9 fL (80.0-100.0); Monocytes # (auto) 0.9 10 ^3/uL (0-1.3); Monocytes % (auto) 7.2 % (0.0-12.0); Neutrophils # (auto) 10.8 10 ^3/uL (1.6-8.6); Neutrophils % (auto) 89.2 % (37.0-80.0); Platelet Count (auto) 184 10^3/uL (140-450); Red Blood Cells 4.87 10^6/uL (4.5-5.90); Red Cell Distribution Width 13.9 % (11.8-14.3); White Blood Cell 12.1 10^3/uL (4.4-10.8)
[2024-07-15 05:23] LABS: Anion Gap 4 (5-15)
[2024-07-15 05:24] LABS: Calcium 9.5 mg/dL (8.7-10.4)
[2024-07-15 05:29] LABS: BUN/Creatinine Ratio 28.1 (10.0-20.0)
[2024-07-15] MEDS: MELATONIN 5 MG TAB PO ONE (05:35)
[2024-07-15 05:40] LABS: Blood Urea Nitrogen 27 mg/dL (9-23); Carbon Dioxide 35 mmol/L (20-31); Chloride 96 mmol/L (98-107); Glucose 150 mg/dL (74-106); Sodium 135 mmol/L (136-145)
--- NOTE | 2024-07-15 07:54 | DVHSR ---
APPROVED REPORT EXAM: Two-dimensional and M-mode echocardiogram with Doppler and color Doppler. Blood Pressure: 118/47 mmHg INDICATION SOB RISK FACTORS Height: 5'11", Weight: 200 DIMENSIONS LVDd5.5 (3.8-5.7cm)LA (2D)4.0 (1.9-4.0cm)Aortic Root3.7 (2.0-3.7cm) LVDs4.3 (2.5-4.0cm)LA (MM) (1.9-4.0cm)Aortic Cusp Exc2.0 (1.5-2.0cm) EF (%) 55.0 (55-70%)Rt. Atrium4.8 (1.9-4.0cm)Asc. Aorta cm IVSd1.0 (0.7-1.1cm)RV (D)4.6 (1.8-2.4cm) PWd0.9 (0.7-1.1cm) Mitral Valve MitralMitral Stenosis E wave0.82m/sMV Mean GR.mmHg A wave0.87m/sMV Peak GR.mmHg E/A ratio0.92D MVAcm2 DECEL [id number] 1/2 Timems Aortic Valve Aortic ValveAortic Stenosis V11.38m/Cristy Mean GR.5mmHg V21.50m/Cristy Peak GR.9mmHg LVOT Diameter2.0 (1.8-2.4cm)Doppler AVA2.89cm2 Pulmonic Valve V21.43m/s Tricuspid Valve TR Velocity3.04m/s [id number] LEFT VENTRICLE Normal left ventricular size. Wall thickness is normal. Ejection fraction is normal and is estimate d at 55% based on visual estimate. There is no gross wall motion abnormalities. There is pseudonorm al left ventricular filling pattern. E to E prime ratio is in the normal range. RIGHT VENTRICLE The right ventricle is mildly dilated in size. Systolic function is preserved. ATRIA The left atrium is of normal size. The right atrium is mildly dilated. MITRAL VALVE Normal structure and function. PULMONIC VALVE Likely normal. TRICUSPID VALVE Normal structure and function. There is trace tricuspid regurgitation. PA systolic pressure is hiram mated at 40-45 mm Hg. AORTIC VALVE Normal structure and function. GREAT VESSELS Aortic root is of normal size. Proximal ascending aorta is not well visualized. PERICARDIAL EFFUSION No significant pericardial effusion. IVC is of normal size and collapses normally with inspiration. Other Information Quality : LimitedRhythm : Technically limited study due to body habitus and COPD. Conclusion Normal left ventricular size and systolic function. Mildly dilated right ventricle with preserved systolic function. No hemodynamically significant valvular disease. PA systolic pressure is estimated at 40-45 mm Hg.
[2024-07-15 10:36] LABS: Base Excess 4.4 mmol/L (-2.0-3.0)
[2024-07-15] MEDS: PANTOPRAZOLE 40 MG/10 ML VIAL INJ IV SCH (10:41)
[2024-07-15] MEDS: ASPirin 81 mg TAB PO SCH (10:41)
--- NOTE | 2024-07-15 10:52 | DVHPN2 ---
Progress Note Date Seen: Jul 15, 2024 Medical Necessity Reason Pt with a Central, PICC or Fol: No Subjective Patient reports: No new complaints Review of Systems: HEENT:Normal, CVS:Normal, RESPIRATORY:Normal, GI:Normal, :Normal, MSK:Normal, NEURO:Normal Objective vital signs Vital Sign Date Time Temp Pulse Resp B/P (MAP) Pulse Ox O2 Delivery O2 Flow Rate FiO2 07/15/24 09:51 108 21 93 07/15/24 09:45 Oxymizer 8 N/A 07/15/24 08:44 127/64 07/14/24 19:15 98.6 98.6 Total Intake and Output 07/14/24 07/14/24 07/15/24 15:00 23:00 07:00 Intake Total 150 ml Output Total 550 ml 425 ml Balance 150 ml -550 ml -425 ml medications Current Medications Medications Dose Ordered Sig/Grace Route Start Time Stop Time Status Last Admin Dose Admin Albuterol 2.5 mg Q4HR NEB 07/14/24 02:00 07/15/24 09:45 2.5 MG Ipratropium [place] 0.5 mg Q4HR NEB 07/14/24 02:00 07/15/24 09:45 0.5 MG Levofloxacin/ Dextrose 150 ml @ 100 mls/hr DAILY IV 07/14/24 10:00 07/15/24 10:42 100 MLS/HR Oxycodone/ Acetaminophen 1 tab Q4HP PRN PO 07/14/24 02:00 07/14/24 09:54 1 TAB Duloxetine HCl 30 mg DAILY PO 07/14/24 10:00 07/15/24 10:41 30 MG Atorvastatin Calcium 40 mg HS PO 07/14/24 22:00 07/14/24 21:35 40 MG Hydralazine HCl 10 mg Q6HP PRN IV 07/14/24 02:00 Enoxaparin Sodium 40 mg DAILY SC 07/14/24 10:00 07/15/24 10:41 40 MG Lorazepam 0.5 mg Q8HP PRN IV 07/14/24 13:15 07/14/24 23:07 0.5 MG Methylprednisolone Sodium Succinate 40 mg Q8HR IV 07/14/24 22:00 07/15/24 05:35 40 MG Aspirin 81 mg DAILY PO 07/15/24 10:00 07/15/24 10:41 81 MG Pantoprazole Sodium 40 mg DAILY IV 07/15/24 10:00 07/15/24 10:41 40 MG Melatonin 10 mg HS PO 07/15/24 22:00 Examination: GENERAL:Normal, HEENT:Normal, NECK:Normal, LUNGS:Normal, LUNGS:Abnormal (on bipap), CVS:Normal, ABDOMEN:Normal, MSK:Normal, SKIN:Normal, NEURO:Normal, :Normal laboratory and microbiology Laboratory Tests 07/15/24 04:47 Test 07/15/24 04:47 Range/Units Serum Glucose 150 H 74-106 mg/dL Problem List/Assessment/Plan Problem List/Assessment/Plan #1 acute resp failure: bipap , monitor blood gases #2 copd with exacerbation: iv steroids, bronchodilators #3 ?pneumonia- gram positive/neg: levaquin #4 htn #5 tobacco abuse: advised to quit, refused nicotine patch- time spent 11 mins #6 cad s/p stent #7 hyperlipidemia Plan discussed with: Patient My Orders My Orders Orders - NOA BROWN MD Procedure Category Date Status Time Lorazepam 2mg/Ml Inj PHA 07/14/24 In Process (Ativan Inj) 13:15 Methylprednisolone PHA 07/14/24 In Process Sod Succ (Solu Medrol 22:00 Aspirin Tablet PHA 07/15/24 In Process 10:00 Pantoprazole PHA 07/15/24 In Process (Protonix) 10:00 Abg W/ Co-Ox RT 07/15/24 Logged 10:15 Abg W/ Co-Ox RT 07/15/24 Logged 11:30 Critical Care Time (mins): 37 (critical care time including monitoring blood gases/bipap was 37 mins) Date of Service: Jul 15, 2024 Billing Provider: NOA BROWN MD Common Visit Codes: [id number] CARE 30-74 MIN NOA BROWN MD Jul 15, 2024 10:52
[2024-07-15] MEDS: BUDESONIDE (INHALATION) 0.5 MG/2 ML NEB NEB ONE (11:19)
[2024-07-15 11:50] LABS: Base Excess 4.7 mmol/L (-2.0-3.0)
[2024-07-15 14:19] LABS: Base Excess 5.8 mmol/L (-2.0-3.0)
[2024-07-15] MEDS: MELATONIN 5 MG TAB PO SCH (22:00)
[2024-07-15] MEDS: BUDESONIDE (INHALATION) 0.5 MG/2 ML NEB NEB SCH (22:21)
[2024-07-16] VITALS (16 sets, daily range): BP systolic 110–133; BP diastolic 58–81; PULSE 101–132; RESP 16–23; TEMP 97.7–98.3; O2SAT 90–99
[2024-07-16 04:58] LABS: Basophils # (auto) 0 10 ^3/uL (0-0.2); Eosinophils # (auto) 0 10 ^3/uL (0-0.8); Hematocrit 45.2 % (41.0-53.0); Hemoglobin 15.1 g/dL (13.5-17.5); Lymphocytes # (auto) 0.5 10 ^3/uL (0.4-5.4); Lymphocytes % (auto) 4.6 % (10.0-50.0); Mean Corpuscular Hemoglobin 32.7 pg (28.0-32.0); Mean Corpuscular Hgb Conc. 33.3 g/dL (32.0-36.0); Monocytes % (auto) 9.2 % (0.0-12.0); Neutrophils % (auto) 86.2 % (37.0-80.0); Platelet Count (auto) 192 10^3/uL (140-450); Red Blood Cells 4.61 10^6/uL (4.5-5.90); Red Cell Distribution Width 13.5 % (11.8-14.3); White Blood Cell 10.4 10^3/uL (4.4-10.8)
[2024-07-16 05:06] LABS: Anion Gap 3 (5-15); Potassium 5.1 mmol/L (3.5-5.1)
[2024-07-16 05:07] LABS: Calcium 9.4 mg/dL (8.7-10.4)
[2024-07-16 05:12] LABS: BUN/Creatinine Ratio 27.2 (10.0-20.0)
[2024-07-16 05:23] LABS: Blood Urea Nitrogen 25 mg/dL (9-23); Carbon Dioxide 37 mmol/L (20-31); Chloride 94 mmol/L (98-107); Glucose 158 mg/dL (74-106); Sodium 134 mmol/L (136-145)
--- NOTE | 2024-07-16 05:58 | DVH ---
CHEST RADIOGRAPH Indication: copd Technique: Single frontal view of the chest was obtained Comparison: XY CHEST XRAY 1 VIEW on DOS: 07/14/24, XY CHEST PORTABLE on DOS: 07/13/24, CHEST PORTABLE on DOS: 04/09/20 IMPRESSION: The heart is prominent in size. There are low lung volumes. Elevation of the left hemidiaphragm. No focal airspace opacity, effusion, or pneumothorax.
--- NOTE | 2024-07-16 09:56 | ECG ---
[facility] Test Date: 2024-07-16 Test Time: 00:19:09 Pat Name: OSCAR GUILLERMO Department: ED Room: 0290T Gender: M Client Success Specialist: CAESAR : 1950 Requested By: NOA BROWN Order Number: [id number] Reading MD: Garth Campuzano Measurements Intervals [place] Rate: 138 P: 0 [place]: 0 QRS: 68 QRSD: 85 T: -27 QT: 328 QTc: 497 Interpretive Statements Atrial fibrillation Low voltage, extremity and precordial leads Borderline prolonged QT interval Baseline wander in lead(s) V2 Electronically Signed On 07-17-2024 8:49:07 PST by Garth Campuzano Please click the below link to view image of tracing.
[2024-07-16] MEDS: LEVALBUTEROL HCL 1.25 MG/3 ML NEB NEB SCH (10:00)
[2024-07-16] MEDS: LEVALBUTEROL HCL 1.25 MG/3 ML NEB ONE (10:44)
--- NOTE | 2024-07-16 13:02 | DVHDS2 ---
Discharge Summary Date of Admission Jul 13, 2024 at 22:52 Date of Discharge: Jul 16, 2024 Labs/Diagnostic Data: Laboratory Results Test 07/16/24 04:39 07/15/24 13:54 07/15/24 06:10 07/14/24 08:30 White Blood Count 10.4 10^3/uL (4.4-10.8) Red Blood Count 4.61 10^6/uL (4.5-5.90) Hemoglobin 15.1 g/dL (13.5-17.5) Hematocrit 45.2 % (41.0-53.0) Mean Corpuscular Volume 98.0 fL (80.0-100.0) Mean Corpuscular Hemoglobin 32.7 pg (28.0-32.0) Mean Corpuscular Hemoglobin Concent 33.3 g/dL (32.0-36.0) Red Cell Distribution Width 13.5 % (11.8-14.3) Platelet Count 192 10^3/uL (140-450) Mean Platelet Volume 8.0 fL (6.9-10.8) Neutrophils (%) (Auto) 86.2 % (37.0-80.0) Lymphocytes (%) (Auto) 4.6 % (10.0-50.0) Monocytes (%) (Auto) 9.2 % (0.0-12.0) Eosinophils (%) (Auto) 0.0 % (0.0-7.0) Basophils (%) (Auto) 0.0 % (0.0-2.0) Neutrophils # (Auto) 9.0 10 ^3/uL (1.6-8.6) Lymphocytes # (Auto) 0.5 10 ^3/uL (0.4-5.4) Monocytes # (Auto) 1.0 10 ^3/uL (0-1.3) Eosinophils # (Auto) 0 10 ^3/uL (0-0.8) Basophils # (Auto) 0 10 ^3/uL (0-0.2) Nucleated Red Blood Cells 0.0 % Sodium Level 134 mmol/L (136-145) Potassium Level 5.1 mmol/L (3.5-5.1) Chloride Level 94 mmol/L (98-107) Carbon Dioxide Level 37 mmol/L (20-31) Anion Gap 3 (5-15) Blood Urea Nitrogen 25 mg/dL (9-23) Creatinine 0.92 mg/dL (0.700-1.30) Glomerular Filtration Rate Calc 88 mL/min (>90) BUN/Creatinine Ratio 27.2 (10.0-20.0) Serum Glucose 158 mg/dL (74-106) Calcium Level 9.4 mg/dL (8.7-10.4) Blood Gas Specimen Type Arterial Blood Gas Sample Site Left radial Blood Gas Patient Temperature 37.0 Arterial Blood Date Drawn [id number] Arterial Blood pH 7.343 (7.350-7.450) Arterial Blood Partial Pressure CO2 64.2 mmHg (35.0-48.0) Arterial Blood Partial Pressure O2 68.9 mmHg (83.0-108.0) Arterial Blood HCO3 34.1 mmol/L (21.0-28.0) Arterial Blood Oxygen Saturation 93.8 % (94.0-98.0) Arterial Blood Base Excess 5.8 mmol/L (-2.0-3.0) Arterial Blood Oxyhemoglobin 92.3 % (94.0-98.0) Arterial Blood Carboxyhemoglobin 0.9 % (0.5-1.5) Arterial Blood Methemoglobin 0.7 % (0.0-1.5) Isaiah Test Yes Blood Gas Total Hemoglobin 16.10 g/dL (13.5-17.5) Blood Gas Liter Flow 5.00 Blood Gas Modality Oxymizer FiO2 % 46.0 Blood Gas Critical Value Read Back Yes Blood Gas Notified Whom Stephanie mendenhall Blood Gas Notified Time [id number] Blood Gas Notified By Berna lance Venous Blood pH 7.303 (7.320-7.430) Venous Blood pCO2 at Patient Temp 63.7 mmHg (38.0-54.0) Venous Blood pO2 at Patient Temp 79.3 mmHg (23.0-48.0) Venous Blood HCO3 30.9 mmol/L (22.0-29.0) Venous Blood Base Excess 2.5 mmol/L (-2.0-3.0) Blood Gas Set Respiration Rate 16.0 Blood Gas EPAP 6 Blood Gas IPAP 22 Blood Gas Spontaneous Rate 19 Blood Gas Spontaneous Tidal Volume 903 Test 07/14/24 05:20 07/14/24 05:12 07/14/24 01:28 07/14/24 00:18 Lactic Acid Level 1.6 mmol/L (0.4-2.0) Urine Color Yellow (Yellow) Urine Clarity Clear (Clear) Urine pH 5.5 (5.0-9.0) Urine Specific [place] 1.029 (1.001-1.035) Urine Protein 1+ (Negative) Urine Ketones 2+ (Negative) Urine Blood 3+ /uL (Negative) Urine Nitrite Negative (Negative) Urine Bilirubin Negative (Negative) Urine Urobilinogen Normal mg/dL (Negative) Urine Leukocyte Esterase Negative /uL (Negative) Urine RBC 86 /hpf (0 - 3) Urine WBC 3 /hpf (0 - 3) Urine Squamous Epithelial Cells Few /hpf (<5) Urine Bacteria None seen /hpf (None Seen) Urine Hyaline Casts Mod /lpf (0 - 2) Urine Granular Casts Few /lpf (0) Urine Mucus Few (None Seen) Urine Yeast (Budding) Occasional /hpf (None Urine Glucose Normal mg/dL (Normal) Urine Opiates Screen Neg (NEGATIVE) Urine Fentanyl Screen Neg (NEGATIVE) Urine Barbiturates Screen Neg (NEGATIVE) Urine Phencyclidine Screen Neg (NEGATIVE) Urine Amphetamines Screen Neg (NEGATIVE) Urine Benzodiazepines Screen Neg (NEGATIVE) Urine Cocaine Screen Neg (NEGATIVE) Urine Cannabinoids Screen Neg (NEGATIVE) Total Bilirubin 0.7 mg/dL (0.2-1.0) Aspartate Amino Transferase (AST) 38 U/L (13-40) Alanine Aminotransferase (ALT) 29 U/L (7-40) Alkaline Phosphatase 120 U/L (46-116) Total Protein 7.0 g/dL (5.7-8.2) Albumin 4.4 g/dL (3.2-4.8) Influenza Type A Antigen Negative (Negative) Influenza Type B Antigen Negative (Negative) SARS-CoV-2 Antigen (Rapid) Negative (NEGATIVE) Test 07/13/24 23:41 07/13/24 18:50 07/13/24 15:18 Specimen Drawn By Dasha turpin rrt Troponin I High Sensitivity 12 ng/L (</=54) B-Type Natriuretic Peptide 29.00 pg/mL (0-100) Other Laboratory Tests 07/16/24 04:39 Brief Hx & Hospital Course: see dictated note Condition at Discharge: Fair Final Diagnosis/Problems List copd Discharge Disposition: Acute Care Facility Discharge Instruct/Medications Diet: Cardiac 2g Na,low cholest Activity: No Restrictions, As Tolerated Follow Up/Referral: fu with [facility] Medications: per sep Discharge Statement: "Patient was advised to return to the ER or call 911 if any headaches, dizziness, shortness of breath, chest pain, abdominal pain, bleeding, fevers, or worsening of medical condition. Patient was counseled about treatment plan, medications, possible side effects, patientverbalized understanding. All questions were answered to the best of my ability. This discharge took greater then 30 minutes in planning, reviewing documentation, counseling the patient, and discussing with other team members." ASSESSMENT ASSESSMENT Assessment copd Date of Service: Jul 16, 2024 Billing Provider: NOA BROWN MD Common Visit Codes: [id number]/[id number] DISCH DAY >30min NOA BROWN MD Jul 16, 2024 13:02
--- NOTE | 2024-07-16 14:49 | DVHDS ---
DATE OF DISCHARGE: 07/16/2024 TRANSFER SUMMARY HISTORY OF PRESENT ILLNESS: The patient is a 74-year-old gentleman who was admitted with history of increasing shortness of breath and has history of COPD, coronary artery disease, chronic pain, osteoarthritis. The patient continues to smoke. HOSPITAL COURSE: The patient had a chest x-ray that showed bibasilar atelectasis. The patient was in acute respiratory failure requiring use of BiPAP. The patient's tox screen was negative. Serology was negative for influenza and COVID-19. The patient was placed on steroids along with antibiotics. The patient had an echocardiogram done that showed ejection fraction of 55%. The patient at this time continues to need significant amount of oxygen. He will be transferred to [place] for further management. FINAL DIAGNOSES: Therefore, * Acute respiratory failure. * Chronic obstructive pulmonary disease exacerbation. * Questionable pneumonia, gram-positive, gram-negative. * Hypertension. * Tobacco abuse. * Coronary artery disease with previous stent. * Chronic pain. * Hyperlipidemia. Time spent in discharge planning and review of plan with the patient, social media campaign manager and paperwork was 39 minutes. MD RUDI Tanner/ALYSON/CARYN TID: [id number] RECEIPT: [id number]
[2024-07-17] VITALS (21 sets, daily range): BP systolic 95–140; BP diastolic 47–78; PULSE 84–130; RESP 17–23; TEMP 97.2–98; O2SAT 88–99
--- NOTE | 2024-07-17 13:21 | DVHPN2 ---
Progress Note Date Seen: Jul 17, 2024 Medical Necessity Reason Pt with a Central, PICC or Fol: No Subjective Patient reports: No new complaints Review of Systems: HEENT:Normal, CVS:Normal, RESPIRATORY:Normal, GI:Normal, :Normal, MSK:Normal, NEURO:Normal Objective vital signs Vital Sign Date Time Temp Pulse Resp B/P (MAP) Pulse Ox O2 Delivery O2 Flow Rate FiO2 07/17/24 10:07 111 20 88 07/17/24 10:00 Oxymizer 8.0 07/17/24 10:00 N/A 07/17/24 08:42 97.2 95/47 (63) 97.2 Total Intake and Output 07/16/24 07/16/24 07/17/24 14:59 22:59 06:59 Intake Total 100 ml 1040 ml Balance 100 ml 1040 ml medications Current Medications Medications Dose Ordered Sig/Grace Route Start Time Stop Time Status Last Admin Dose Admin Ipratropium [place] 0.5 mg Q4HR NEB 07/14/24 02:00 07/17/24 10:00 0.5 MG Levofloxacin/ Dextrose 150 ml @ 100 mls/hr DAILY IV 07/14/24 10:00 07/17/24 09:58 100 MLS/HR Oxycodone/ Acetaminophen 1 tab Q4HP PRN PO 07/14/24 02:00 07/16/24 21:27 1 TAB Duloxetine HCl 30 mg DAILY PO 07/14/24 10:00 07/17/24 10:01 30 MG Atorvastatin Calcium 40 mg HS PO 07/14/24 22:00 07/16/24 21:27 40 MG Hydralazine HCl 10 mg Q6HP PRN IV 07/14/24 02:00 Enoxaparin Sodium 40 mg DAILY SC 07/14/24 10:00 07/17/24 10:05 40 MG Lorazepam 0.5 mg Q8HP PRN IV 07/14/24 13:15 07/14/24 23:07 0.5 MG Methylprednisolone Sodium Succinate 40 mg Q8HR IV 07/14/24 22:00 07/16/24 06:33 40 MG Aspirin 81 mg DAILY PO 07/15/24 10:00 07/17/24 10:01 81 MG Pantoprazole Sodium 40 mg DAILY IV 07/15/24 10:00 07/17/24 10:02 40 MG Melatonin 10 mg HS PO 07/15/24 22:00 07/16/24 21:27 10 MG Budesonide 0.5 mg BID NEB 07/15/24 22:00 07/17/24 07:36 0.5 MG Levalbuterol HCl 1.25 mg Q4HR NEB 07/16/24 10:00 07/17/24 10:00 1.25 MG Examination: GENERAL:Normal, HEENT:Normal, NECK:Normal, LUNGS:Normal, LUNGS:Abnormal (on oxymizer), CVS:Normal, ABDOMEN:Normal, MSK:Normal, SKIN:Normal, NEURO:Normal, :Normal laboratory and microbiology Laboratory Tests 07/16/24 04:39 Test 07/16/24 04:39 Range/Units Serum Glucose 158 H 74-106 mg/dL Problem List/Assessment/Plan Problem List/Assessment/Plan #1 acute resp failure: bipap , monitor blood gases #2 copd with exacerbation: iv steroids, bronchodilators #3 ?pneumonia- gram positive/neg: levaquin #4 htn #5 tobacco abuse: advised to quit, refused nicotine patch- time spent 11 mins #6 cad s/p stent #7 hyperlipidemia advanced care planning - full code- time spent 19 mins Plan discussed with: Patient Date of Service: Jul 17, 2024 Billing Provider: NOA BROWN MD Common Visit Codes: [id number] INP/OBS CARE(HIGH) Secondary Visit Codes: [id number] CARE PLAN 30 MINUTES NOA BROWN MD Jul 17, 2024 13:21
[2024-07-18] VITALS (22 sets, daily range): BP systolic 110–126; BP diastolic 60–72; PULSE 87–125; RESP 18–22; TEMP 98–98.4; O2SAT 90–97
[2024-07-18 07:04] LABS: Potassium 4.9 mmol/L (3.5-5.1)
[2024-07-18 07:05] LABS: Anion Gap 2.99999 (5-15); Chloride 92 mmol/L (98-107); Sodium 135 mmol/L (136-145)
[2024-07-18 07:08] LABS: Basophils # (auto) 0 10 ^3/uL (0-0.2); Eosinophils # (auto) 0 10 ^3/uL (0-0.8); Hematocrit 43.3 % (41.0-53.0); Hemoglobin 14.2 g/dL (13.5-17.5); Lymphocytes # (auto) 0.6 10 ^3/uL (0.4-5.4); Mean Corpuscular Hemoglobin 32.4 pg (28.0-32.0); Mean Corpuscular Hgb Conc. 32.9 g/dL (32.0-36.0); Mean Corpuscular Volume 98.6 fL (80.0-100.0); Monocytes # (auto) 0.5 10 ^3/uL (0-1.3); Monocytes % (auto) 6.6 % (0.0-12.0); Neutrophils # (auto) 6.9 10 ^3/uL (1.6-8.6); Neutrophils % (auto) 85.4 % (37.0-80.0); Nucleated Red Blood Cells % 0.1 %; Platelet Count (auto) 186 10^3/uL (140-450); Red Blood Cells 4.39 10^6/uL (4.5-5.90); Red Cell Distribution Width 13.4 % (11.8-14.3)
[2024-07-18 07:09] LABS: Carbon Dioxide > 40 mmol/L (20-31)
[2024-07-18 07:10] LABS: BUN/Creatinine Ratio 25.8 (10.0-20.0); Blood Urea Nitrogen 16 mg/dL (9-23)
[2024-07-18 07:11] LABS: Glucose 155 mg/dL (74-106)
--- NOTE | 2024-07-18 13:37 | ECG ---
[facility] Test Date: 2024-07-16 Test Time: 10:02:35 Pat Name: OSCAR GUILLERMO Department: ER Room: 0290T Gender: M Proof Coin Collector: BERNY : 1950 Requested By: GEETA RODAS Order Number: [id number] Reading MD: Measurements Intervals [place] Rate: 129 P: 0 [place]: 160 QRS: 90 QRSD: 99 T: -84 QT: 334 QTc: 490 Interpretive Statements Sinus tachycardia Consider right atrial enlargement Borderline right axis deviation Low voltage, precordial leads Borderline prolonged QT interval Please click the below link to view image of tracing.
--- NOTE | 2024-07-18 19:20 | DVHPN2 ---
Subjective Worsening dyspnea Reviewed: Care Plan, H&P, Labs, Medications, Previous Orders, Radiology Changes from previous H/P or p: Changes Objective Vitals Vital Signs Date Time Temp Pulse Resp B/P (MAP) Pulse Ox O2 Delivery O2 Flow Rate FiO2 07/18/24 18:29 98 20 96 07/18/24 16:38 98.0 126/70 (88) 98.0 07/18/24 14:18 Oxymizer 6 N/A Intake/Output Intake and Output 07/18/24 07:00 Intake Total 2250 ml Balance 2250 ml Intake Oral 2100 ml IV Total 150 ml # Voids 16 General Appearance: Alert, Oriented X3, Cooperative, moderate distress HEENT: Atraumatic Lungs: Other (Very decreased air entry bilateral) Cardiovascular: Normal S1, Normal S2, Other (Tachycardia) Abdomen: Normal bowel sounds, Soft, No tenderness Neuro: Normal speech, Cranial nerves 3-12 NL Psych/Mental Status: Mental status NL, Mood NL Medications Current Medications Medications Dose Ordered Sig/Grace Route Start Time Stop Time Status Last Admin Dose Admin Ipratropium [place] 0.5 mg Q4HR NEB 07/14/24 02:00 07/18/24 18:18 0.5 MG Levofloxacin/ Dextrose 150 ml @ 100 mls/hr DAILY IV 07/14/24 10:00 07/18/24 09:10 100 MLS/HR Oxycodone/ Acetaminophen 1 tab Q4HP PRN PO 07/14/24 02:00 07/18/24 10:30 1 TAB Duloxetine HCl 30 mg DAILY PO 07/14/24 10:00 07/18/24 09:11 30 MG Atorvastatin Calcium 40 mg HS PO 07/14/24 22:00 07/17/24 21:21 40 MG Hydralazine HCl 10 mg Q6HP PRN IV 07/14/24 02:00 Enoxaparin Sodium 40 mg DAILY SC 07/14/24 10:00 07/18/24 09:11 40 MG Lorazepam 0.5 mg Q8HP PRN IV 07/14/24 13:15 07/18/24 18:21 0.5 MG Methylprednisolone Sodium Succinate 40 mg Q8HR IV 07/14/24 22:00 07/18/24 13:54 40 MG Aspirin 81 mg DAILY PO 07/15/24 10:00 07/18/24 09:11 81 MG Pantoprazole Sodium 40 mg DAILY IV 07/15/24 10:00 07/18/24 09:10 40 MG Melatonin 10 mg HS PO 07/15/24 22:00 07/17/24 21:21 10 MG Budesonide 0.5 mg BID NEB 07/15/24 22:00 07/18/24 08:36 0.5 MG Levalbuterol HCl 1.25 mg Q4HR NEB 07/16/24 10:00 07/18/24 18:18 1.25 MG Laboratory Results Laboratory Tests 07/18/24 06:10 Chemistry Test 07/18/24 06:10 Calcium Level 9.0 mg/dL (8.7-10.4) Urinalysis Test 07/14/24 05:12 Urine Color Yellow (Yellow) Urine Clarity Clear (Clear) Urine pH 5.5 (5.0-9.0) Urine Specific [place] 1.029 (1.001-1.035) Urine Protein 1+ (Negative) H Urine Ketones 2+ (Negative) H Urine Blood 3+ /uL (Negative) H Urine Nitrite Negative (Negative) Urine Bilirubin Negative (Negative) Urine Urobilinogen Normal mg/dL (Negative) Urine Leukocyte Esterase Negative /uL (Negative) Urine RBC 86 /hpf (0 - 3) Urine WBC 3 /hpf (0 - 3) Urine Squamous Epithelial Cells Few /hpf (<5) Urine Bacteria None seen /hpf (None Seen) Urine Hyaline Casts Mod /lpf (0 - 2) Urine Granular Casts Few /lpf (0) Urine Mucus Few (None Seen) Urine Yeast (Budding) Occasional /hpf (None Urine Glucose Normal mg/dL (Normal) Labs and/or images reviewed: Labs reviewed by me, Image(s) reviewed by me Assessment/Plan Assessment/Plan Covering Dr. Brown: #Acute hypoxic hypercapnic respiratory failure due to COPD exacerbation secondary to suspected pneumonia; transitioned from BiPAP to Oxymizer; continue oxygen therapy as needed; still unstable to transfer to [facility]; reviewed chest x-rays and ABGs; continue monitoring #COPD exacerbation due to suspected pneumonia; continue IV antibiotics; continue IV steroids; continue nebulizers; continue monitoring #Suspected pneumonia; Gram-positive versus Gram-negative; management as above; continue monitoring #Sepsis with leukocytosis due to suspected pneumonia; continue monitoring #Tobacco use disorder; refuse nicotine patch; counseled on cessation for 18 minutes; continue monitoring #CAD status post stenting; continue current medical management with aspirin and statin; continue monitoring #Obesity with metabolic syndrome; counseled on the importance of adopting healthy lifestyle with diet and exercise in order to lose weight; continue monitoring #Hyperlipidemia; continue statin; continue monitoring #Hypertensive heart disease without heart failure; continue antihypertensive medications indicated; continue monitoring #Acute respiratory acidosis compensated by acute metabolic alkalosis; continue monitoring #Chronic pain syndrome; continue duloxetine along with other elements of pain management; continue monitoring Goals of care discussed with the patient for 22 minutes; full code. Unstable to transfer to [facility]. Critical care time of 99 minutes. Late Entry. This medical document was created using an electronic medical record system with computerized dictation system. Although this document has been carefully reviewed, there might still be some phonetic and typographical errors. These areas are purely typographical due to imperfections of the software programs, and do not reflect any compromise in the patient's medical care. Plan discussed with: Patient, Other (Nurse) Date of Service: Jul 18, 2024 Billing Provider: DEBRA COOLEY MD Common Visit Codes: [id number] CARE 30-74 MIN (99 minutes), [id number] CARE-EACH +30MIN Secondary Visit Codes: [id number] CHNG SMOKING >10MIN (18 minutes), 89991- ADVANCED CARE PLAN 30 MINUTES (22 minutes) DEBRA COOLEY MD Jul 18, 2024 19:20
[2024-07-19] VITALS (20 sets, daily range): BP systolic 107–134; BP diastolic 54–92; PULSE 77–126; RESP 16–23; TEMP 97.5–98.4; O2SAT 92–98
[2024-07-19 08:17] LABS: Basophils # (auto) 0 10 ^3/uL (0-0.2); Basophils % (auto) 0.1 % (0.0-2.0); Eosinophils # (auto) 0 10 ^3/uL (0-0.8); Hemoglobin 14.6 g/dL (13.5-17.5); Lymphocytes # (auto) 0.7 10 ^3/uL (0.4-5.4); Lymphocytes % (auto) 5.5 % (10.0-50.0); Mean Corpuscular Hemoglobin 32.4 pg (28.0-32.0); Mean Corpuscular Hgb Conc. 33.3 g/dL (32.0-36.0); Mean Corpuscular Volume 97.4 fL (80.0-100.0); Monocytes # (auto) 0.9 10 ^3/uL (0-1.3); Monocytes % (auto) 7.2 % (0.0-12.0); Neutrophils # (auto) 11.1 10 ^3/uL (1.6-8.6); Neutrophils % (auto) 87.2 % (37.0-80.0); Platelet Count (auto) 238 10^3/uL (140-450); Red Blood Cells 4.51 10^6/uL (4.5-5.90); Red Cell Distribution Width 13.1 % (11.8-14.3); White Blood Cell 12.7 10^3/uL (4.4-10.8)
[2024-07-19 08:27] LABS: Albumin 3.8 g/dL (3.2-4.8); Alkaline Phosphatase 99 U/L (46-116); Aspartate Aminotransferase 22 U/L (13-40); BUN/Creatinine Ratio 24.7 (10.0-20.0); Bilirubin, Total 0.4 mg/dL (0.2-1.0); Blood Urea Nitrogen 19 mg/dL (9-23); Calcium 9.3 mg/dL (8.7-10.4); Potassium 4.7 mmol/L (3.5-5.1); Sodium 136 mmol/L (136-145)
[2024-07-19 09:10] LABS: Alanine Aminotransferase 42 U/L (7-40); Anion Gap 4.99999 (5-15); Chloride 91 mmol/L (98-107); Glucose 151 mg/dL (74-106)
[2024-07-19 09:12] LABS: Carbon Dioxide > 40 mmol/L (20-31)
--- NOTE | 2024-07-19 21:09 | DVHPN2 ---
Subjective Worsening dyspnea Reviewed: Care Plan, H&P, Labs, Medications, Previous Orders, Radiology Changes from previous H/P or p: No Changes Objective Vitals Vital Signs Date Time Temp Pulse Resp B/P (MAP) Pulse Ox O2 Delivery O2 Flow Rate FiO2 07/19/24 20:00 Oxymizer 6 N/A 07/19/24 18:25 113 20 96 07/19/24 16:59 98.4 134/92 (106) 98.4 Intake/Output Intake and Output 07/19/24 07:00 Intake Total 2200 ml Output Total 1360 ml Balance 840 ml Intake Oral 2050 ml IV Total 150 ml Output Urine Total 1360 ml General Appearance: Alert, Oriented X3, Cooperative, moderate distress HEENT: Atraumatic Lungs: Other (Very decreased air entry bilateral) Cardiovascular: Normal S1, Normal S2, Other (Tachycardia) Abdomen: Normal bowel sounds, Soft, No tenderness Neuro: Normal speech, Cranial nerves 3-12 NL Psych/Mental Status: Mental status NL, Mood NL Medications Current Medications Medications Dose Ordered Sig/Grace Route Start Time Stop Time Status Last Admin Dose Admin Ipratropium [place] 0.5 mg Q4HR NEB 07/14/24 02:00 07/19/24 18:15 0.5 MG Levofloxacin/ Dextrose 150 ml @ 100 mls/hr DAILY IV 07/14/24 10:00 07/19/24 09:54 100 MLS/HR Oxycodone/ Acetaminophen 1 tab Q4HP PRN PO 07/14/24 02:00 07/19/24 08:52 1 TAB Duloxetine HCl 30 mg DAILY PO 07/14/24 10:00 07/19/24 08:51 30 MG Atorvastatin Calcium 40 mg HS PO 07/14/24 22:00 07/18/24 21:02 40 MG Hydralazine HCl 10 mg Q6HP PRN IV 07/14/24 02:00 Enoxaparin Sodium 40 mg DAILY SC 07/14/24 10:00 07/19/24 08:52 40 MG Lorazepam 0.5 mg Q8HP PRN IV 07/14/24 13:15 07/18/24 18:21 0.5 MG Methylprednisolone Sodium Succinate 40 mg Q8HR IV 07/14/24 22:00 07/19/24 14:33 40 MG Aspirin 81 mg DAILY PO 07/15/24 10:00 07/19/24 08:51 81 MG Pantoprazole Sodium 40 mg DAILY IV 07/15/24 10:00 07/19/24 08:51 40 MG Melatonin 10 mg HS PO 07/15/24 22:00 07/18/24 21:02 10 MG Budesonide 0.5 mg BID NEB 07/15/24 22:00 07/19/24 18:15 0.5 MG Levalbuterol HCl 1.25 mg Q4HR NEB 07/16/24 10:00 07/19/24 18:15 1.25 MG Laboratory Results Laboratory Tests 07/19/24 07:57 Chemistry Test 07/19/24 07:57 Albumin 3.8 g/dL (3.2-4.8) Calcium Level 9.3 mg/dL (8.7-10.4) Total Protein 6.0 g/dL (5.7-8.2) LFT Test 07/19/24 07:57 Alanine Aminotransferase (ALT) 42 U/L (7-40) H Alkaline Phosphatase 99 U/L (46-116) Aspartate Amino Transferase (AST) 22 U/L (13-40) Total Bilirubin 0.4 mg/dL (0.2-1.0) Urinalysis Test 07/14/24 05:12 Urine Color Yellow (Yellow) Urine Clarity Clear (Clear) Urine pH 5.5 (5.0-9.0) Urine Specific [place] 1.029 (1.001-1.035) Urine Protein 1+ (Negative) H Urine Ketones 2+ (Negative) H Urine Blood 3+ /uL (Negative) H Urine Nitrite Negative (Negative) Urine Bilirubin Negative (Negative) Urine Urobilinogen Normal mg/dL (Negative) Urine Leukocyte Esterase Negative /uL (Negative) Urine RBC 86 /hpf (0 - 3) Urine WBC 3 /hpf (0 - 3) Urine Squamous Epithelial Cells Few /hpf (<5) Urine Bacteria None seen /hpf (None Seen) Urine Hyaline Casts Mod /lpf (0 - 2) Urine Granular Casts Few /lpf (0) Urine Mucus Few (None Seen) Urine Yeast (Budding) Occasional /hpf (None Urine Glucose Normal mg/dL (Normal) Labs and/or images reviewed: Labs reviewed by me, Image(s) reviewed by me Assessment/Plan Assessment/Plan Covering Dr. Stephanie: #Acute hypoxic hypercapnic respiratory failure due to COPD exacerbation secondary to suspected pneumonia; switching between BiPAP and Oxymizer; continue oxygen therapy as needed; still unstable to transfer to [facility]; reviewed chest x-rays and ABGs; ordered repeat chest x-ray, and ABGs continue monitoring #COPD exacerbation due to suspected pneumonia; continue IV antibiotics; continue IV steroids; continue nebulizers; continue monitoring #Suspected pneumonia; Gram-positive versus Gram-negative; management as above; continue monitoring #Sepsis with leukocytosis due to suspected pneumonia; continue monitoring #Tobacco use disorder; refuse nicotine patch; counseled on cessation for 18 minutes; continue monitoring #CAD status post stenting; continue current medical management with aspirin and statin; continue monitoring #Obesity with metabolic syndrome; counseled on the importance of adopting healthy lifestyle with diet and exercise in order to lose weight; continue monitoring #Hyperlipidemia; continue statin; continue monitoring #Hypertensive heart disease without heart failure; continue antihypertensive medications indicated; continue monitoring #Acute respiratory acidosis compensated by acute metabolic alkalosis; to give one dose of acetazolamide; continue monitoring #Chronic pain syndrome; continue duloxetine along with other elements of pain management; continue monitoring Unstable to transfer to [facility]. Critical care time of 66 minutes. Late Entry. This medical document was created using an electronic medical record system with computerized dictation system. Although this document has been carefully reviewed, there might still be some phonetic and typographical errors. These areas are purely typographical due to imperfections of the software programs, and do not reflect any compromise in the patient's medical care. Plan discussed with: Patient, Other (Nurse) My Orders Orders - DEBRA COOLEY MD Procedure Category Date Status Time Communication Order ORDERS 07/19/24 Transmitted 13:34 * [employer] CONS 07/19/24 Transmitted Consult Complete Blood Count LAB 07/20/24 Verified 04:00 Comprehensive LAB 07/20/24 Verified Metabolic Panel 04:00 Chest Xray 1 View XY 07/20/24 Logged 08:00 Abg W/ Co-Ox RT 07/20/24 Logged 06:00 Date of Service: Jul 19, 2024 Billing Provider: DEBRA COOLEY MD Common Visit Codes: [id number] CARE 30-74 MIN (66 minutes) DEBRA COOLEY MD Jul 19, 2024 21:09
[2024-07-19] MEDS ORDERED: acetaZOLAMIDE SODIUM 500 MG VL IV ONE (21:15)
[2024-07-20] VITALS (23 sets, daily range): BP systolic 122–141; BP diastolic 61–88; PULSE 71–119; RESP 17–22; TEMP 97.5–99.1; O2SAT 89–98
--- NOTE | 2024-07-20 06:04 | DVH ---
CHEST RADIOGRAPH Indication: F/U on acute respiratory failure Technique: Single frontal view of the chest was obtained Comparison: XY CHEST PORTABLE on DOS: 07/16/24, XY CHEST XRAY 1 VIEW on DOS: 07/14/24, XY CHEST PORTABL E on DOS: 07/13/24 IMPRESSION: Heart appears stable in size. The lungs appear relatively clear without focal airspace opacity, effu ellie, or pneumothorax.
[2024-07-20 07:48] LABS: Basophils # (auto) 0 10 ^3/uL (0-0.2); Basophils % (auto) 0.3 % (0.0-2.0); Eosinophils # (auto) 0 10 ^3/uL (0-0.8); Hematocrit 47.1 % (41.0-53.0); Hemoglobin 15.7 g/dL (13.5-17.5); Lymphocytes # (auto) 0.8 10 ^3/uL (0.4-5.4); Lymphocytes % (auto) 6.4 % (10.0-50.0); Mean Corpuscular Hemoglobin 32.5 pg (28.0-32.0); Mean Corpuscular Hgb Conc. 33.2 g/dL (32.0-36.0); Mean Corpuscular Volume 97.9 fL (80.0-100.0); Monocytes # (auto) 0.8 10 ^3/uL (0-1.3); Monocytes % (auto) 5.8 % (0.0-12.0); Neutrophils # (auto) 11.5 10 ^3/uL (1.6-8.6); Neutrophils % (auto) 87.5 % (37.0-80.0); Nucleated Red Blood Cells % 0.1 %; Platelet Count (auto) 289 10^3/uL (140-450); Red Blood Cells 4.81 10^6/uL (4.5-5.90); Red Cell Distribution Width 13.4 % (11.8-14.3); White Blood Cell 13.1 10^3/uL (4.4-10.8)
[2024-07-20 07:55] LABS: Albumin 4.1 g/dL (3.2-4.8); Alkaline Phosphatase 102 U/L (46-116); Aspartate Aminotransferase 26 U/L (13-40); BUN/Creatinine Ratio 23.2 (10.0-20.0); Blood Urea Nitrogen 19 mg/dL (9-23); Calcium 10.3 mg/dL (8.7-10.4); Potassium 4.7 mmol/L (3.5-5.1)
[2024-07-20 07:56] LABS: Bilirubin, Total 0.7 mg/dL (0.2-1.0); Total Protein 6.6 g/dL (5.7-8.2)
[2024-07-20 08:09] LABS: Chloride 87 mmol/L (98-107); Sodium 135 mmol/L (136-145)
[2024-07-20 08:10] LABS: Alanine Aminotransferase 48 U/L (7-40); Anion Gap 7.99999 (5-15); Carbon Dioxide > 40 mmol/L (20-31); Glucose 144 mg/dL (74-106)
[2024-07-20] MEDS: acetaZOLAMIDE SODIUM 500 MG VL IV ONE ×2 (08:41→19:30)
[2024-07-20 09:37] LABS: Base Excess 15.9 mmol/L (-2.0-3.0)
[2024-07-20 16:36] LABS: Base Excess 12.2 mmol/L (-2.0-3.0)
--- NOTE | 2024-07-20 19:20 | DVHPN2 ---
Subjective Worsening dyspnea with feeling of doom overnight Reviewed: Care Plan, H&P, Labs, Medications, Previous Orders, Radiology Changes from previous H/P or p: Changes Objective Vitals Vital Signs Date Time Temp Pulse Resp B/P (MAP) Pulse Ox O2 Delivery O2 Flow Rate FiO2 07/20/24 17:00 97.7 107 20 141/77 (98) 91 97.7 07/20/24 16:40 Nasal Cannula 4.0 07/20/24 16:40 36 Intake/Output Intake and Output 07/20/24 07:00 Intake Total 2140 ml Output Total 600 ml Balance 1540 ml Intake Oral 2140 ml Output Urine Total 600 ml # Voids 2 General Appearance: Alert, Oriented X3, Cooperative, moderate distress HEENT: Atraumatic Lungs: Other (Very decreased air entry bilateral) Cardiovascular: Normal S1, Normal S2, Other (Tachycardia) Abdomen: Normal bowel sounds, Soft, No tenderness Neuro: Normal speech, Cranial nerves 3-12 NL Psych/Mental Status: Mental status NL, Mood NL Medications Current Medications Medications Dose Ordered Sig/Grace Route Start Time Stop Time Status Last Admin Dose Admin Ipratropium [place] 0.5 mg Q4HR NEB 07/14/24 02:00 07/20/24 14:43 0.5 MG Levofloxacin/ Dextrose 150 ml @ 100 mls/hr DAILY IV 07/14/24 10:00 07/20/24 09:52 100 MLS/HR Oxycodone/ Acetaminophen 1 tab Q4HP PRN PO 07/14/24 02:00 07/19/24 21:01 1 TAB Duloxetine HCl 30 mg DAILY PO 07/14/24 10:00 07/20/24 09:51 30 MG Atorvastatin Calcium 40 mg HS PO 07/14/24 22:00 07/19/24 21:01 40 MG Hydralazine HCl 10 mg Q6HP PRN IV 07/14/24 02:00 Enoxaparin Sodium 40 mg DAILY SC 07/14/24 10:00 07/20/24 09:50 40 MG Lorazepam 0.5 mg Q8HP PRN IV 07/14/24 13:15 07/19/24 21:37 0.5 MG Methylprednisolone Sodium Succinate 40 mg Q8HR IV 07/14/24 22:00 07/20/24 14:02 40 MG Aspirin 81 mg DAILY PO 07/15/24 10:00 07/20/24 09:51 81 MG Pantoprazole Sodium 40 mg DAILY IV 07/15/24 10:00 07/20/24 09:03 40 MG Melatonin 10 mg HS PO 07/15/24 22:00 07/19/24 21:01 10 MG Budesonide 0.5 mg BID NEB 07/15/24 22:00 07/20/24 06:39 0.5 MG Levalbuterol HCl 1.25 mg Q4HR NEB 07/16/24 10:00 07/20/24 14:41 1.25 MG Laboratory Results Laboratory Tests 07/20/24 06:50 Chemistry Test 07/20/24 06:50 Albumin 4.1 g/dL (3.2-4.8) Calcium Level 10.3 mg/dL (8.7-10.4) Total Protein 6.6 g/dL (5.7-8.2) LFT Test 07/20/24 06:50 Alanine Aminotransferase (ALT) 48 U/L (7-40) H Alkaline Phosphatase 102 U/L (46-116) Aspartate Amino Transferase (AST) 26 U/L (13-40) Total Bilirubin 0.7 mg/dL (0.2-1.0) Urinalysis Test 07/14/24 05:12 Urine Color Yellow (Yellow) Urine Clarity Clear (Clear) Urine pH 5.5 (5.0-9.0) Urine Specific [place] 1.029 (1.001-1.035) Urine Protein 1+ (Negative) H Urine Ketones 2+ (Negative) H Urine Blood 3+ /uL (Negative) H Urine Nitrite Negative (Negative) Urine Bilirubin Negative (Negative) Urine Urobilinogen Normal mg/dL (Negative) Urine Leukocyte Esterase Negative /uL (Negative) Urine RBC 86 /hpf (0 - 3) Urine WBC 3 /hpf (0 - 3) Urine Squamous Epithelial Cells Few /hpf (<5) Urine Bacteria None seen /hpf (None Seen) Urine Hyaline Casts Mod /lpf (0 - 2) Urine Granular Casts Few /lpf (0) Urine Mucus Few (None Seen) Urine Yeast (Budding) Occasional /hpf (None Urine Glucose Normal mg/dL (Normal) Blood Gas Results Test 07/20/24 02:57 07/20/24 06:52 07/20/24 16:28 Arterial Blood pH 7.366 (7.350-7.450) 7.371 (7.350-7.450) 7.358 (7.350-7.450) FiO2 % 52.0 40.0 40.0 Assessment/Plan Assessment/Plan Covering Dr. Brown: #Acute hypoxic hypercapnic respiratory failure due to COPD exacerbation secondary to suspected pneumonia; constantly on BiPAP after last night event; continue oxygen therapy as needed; still unstable to transfer to [facility]; reviewed chest x-rays and ABGs; ordered repeat chest x-ray, and ABGs; consulted pulmonology worsening acute hypoxic hypercapnic respiratory failure; continue monitoring #COPD exacerbation due to suspected pneumonia; continue IV antibiotics; continue IV steroids; continue nebulizers; continue monitoring #Suspected pneumonia; Gram-positive versus Gram-negative; management as above; continue monitoring #Sepsis with leukocytosis due to suspected pneumonia; continue monitoring #Tobacco use disorder; refuse nicotine patch; re-counseled on cessation for 18 minutes; continue monitoring #CAD status post stenting; continue current medical management with aspirin and statin; continue monitoring #Obesity with metabolic syndrome; counseled on the importance of adopting healthy lifestyle with diet and exercise in order to lose weight; continue monitoring #Hyperlipidemia; continue statin; continue monitoring #Hypertensive heart disease without heart failure; continue antihypertensive medications indicated; continue monitoring #Acute respiratory acidosis compensated by acute metabolic alkalosis; to give one dose of acetazolamide; continue monitoring #Chronic pain syndrome; continue duloxetine along with other elements of pain management; continue monitoring Goals of care discussed with the patient and his daughter for 20 minutes; full code. Unstable to transfer to [facility]. Critical care time of 110 minutes. Late Entry. This medical document was created using an electronic medical record system with computerized dictation system. Although this document has been carefully reviewed, there might still be some phonetic and typographical errors. These areas are purely typographical due to imperfections of the software programs, and do not reflect any compromise in the patient's medical care. Plan discussed with: Patient, Daughter, Other (Nurse) My Orders Orders - DEBRA COOLEY MD Procedure Category Date Status Time Chest Xray 1 View XY 07/20/24 Resulted 08:00 Abg W/ Co-Ox RT 07/20/24 Logged 06:00 Transfer Orders XFER 07/20/24 Transmitted 08:17 *Consult CONS 07/20/24 Transmitted / 09:10 Abg W/ Co-Ox RT 07/20/24 Logged 16:15 Transfer Orders XFER 07/20/24 Transmitted 18:58 Date of Service: Jul 20, 2024 Billing Provider: DEBRA COOLEY MD Common Visit Codes: [id number] CARE 30-74 MIN (110 minutes), [id number] CARE-EACH +30MIN Secondary Visit Codes: [id number] CHNG SMOKING >10MIN (18 minutes), [id number]- ADVANCED CARE PLAN 30 MINUTES (20 minutes) DEBRA COOLEY MD Jul 20, 2024 19:20
[2024-07-20] MEDS: diphenhdrAMINE HCL 25 MG CAP PO ONE (21:58)
[2024-07-20] MEDS: HYDROmorphone HCL 2 MG/ML VL/or syr IV ONE (22:01)
--- NOTE | 2024-07-20 23:34 | DVHINCON2 ---
Date of service: Jul 20, 2024 Referring Physician Adele Kim MD Reason for Consultation Acute on chronic hypoxic/hypercarbic respiratory failure, COPD exacerbation History of Present Illness A 74-year-old man with past medical history of UT in 2019, s/p PTCA with 1 stent, COPD stage IV, chronic pain, and osteoarthritis who presented to ED on 07/14/24 with c/o worsening shortness of breath. Patient reports shortness of breath ongoing for 2 months which he manages with as needed nebulizer 3 times a day, which was working for him until 3-4 days prior to presentation when SOB worsened. SpO2 on arrival was 82% and the patient was put on nasal cannula, SpO2 was still low and the patient was put on BiPAP. Chest x-ray showed hyperinflation of the lungs. WBC 85704 with left shift. COVID and influenza were negative. Patient was admitted for further care and pulmonary consultation is requested for evaluation and management due to the above findings. Review of Systems: 14-point review of systems negative unless otherwise noted above. Past Medical History: UT in 2019, s/p PTCA with 1 stent, COPD stage IV, chronic pain, osteoarthritis. Past Surgical History: Surgery for perforated colon, inguinal hernia, craniotomy, PTCA X 1 Medications: Reviewed. Allergies: Morphine. Family History: Diabetes mellitus. Social History: Current smoker. Patient has a 55 pack year smoking history but now smokes about 3-4 cigarettes per day Drinks beer about 2-3 times in a week. Denies use of illicit drugs. Family History: Diabetes mellitus G8 MOTHER Allergies: Coded Allergies: Morphine (Verified Allergy, Unknown, 04/09/20) Home Meds Reported Medications Ibuprofen (Ibuprofen) 800 Mg Tab, 800 MG PO DAILYP PRN for PAIN SCALE 1-3 OR TEMP>100.4, MG 04/11/20 Alprazolam (Xanax) 0.25 Mg Tb, 0.5 TAB PO DAILY, #30 TAB 04/11/20 Fluticasone Propionate (Flovent Hfa) 220 Mcg Aer, 220 MCG INH Q12HR for 30 Days, MCG 04/11/20 Vital Signs Vital Signs Date Time Temp Pulse Resp B/P (MAP) Pulse Ox O2 Delivery O2 Flow Rate FiO2 07/20/24 22:55 96 136/78 91 Facial BiPAP Mask 50 07/20/24 22:01 19 07/20/24 21:00 97.5 97.5 07/20/24 20:58 2 Physical Exam Gen.: Patient lying in bed in no apparent distress. On supplemental oxygen. Head: Normocephalic, atraumatic. Eyes: EOMI/PERRLA. Ears: Normal hearing. Normal anatomy. Neck/trachea: Trachea midline, supple. Nose: Normal external anatomy. Mouth: Moist mucous membranes. Chest: Decreased air entry bilaterally. No wheezing or rhonchi. Cardiovascular: Positive S1, positive S2. Regular rate and rhythm. Abdomen: Positive bowel sounds in all 4 quadrants. Soft, non-tender, non- distended. : Deferred. Rectal: Deferred. Skin: Warm, dry. Intact. Extremities: 2+ radial pulses bilaterally. No lower extremity edema. Neuro: Awake, alert, oriented x3. No gross motor or sensory deficits. Cranial nerves II through XII intact. Gait not assessed. Labs/Diagnostic Data Labs Test 07/20/24 16:28 07/20/24 06:52 07/20/24 06:50 07/15/24 06:10 Range/Units Blood Gas Specimen Type Arterial Blood Gas Sample Site Right radial Blood Gas Patient Temperature 37.0 Arterial Blood Date Drawn [id number] Arterial Blood pH 7.358 7.350-7.450 Arterial Blood Partial Pressure CO2 76.4 *H 35.0-48.0 mmHg Arterial Blood Partial Pressure O2 78.7 L 83.0-108.0 mmHg Arterial Blood HCO3 42.0 H 21.0-28.0 mmol/L Arterial Blood Oxygen Saturation 95.2 94.0-98.0 % Arterial Blood Base Excess 12.2 H -2.0-3.0 mmol/L Arterial Blood Oxyhemoglobin 93.8 L 94.0-98.0 % Arterial Blood Carboxyhemoglobin 1.1 0.5-1.5 % Arterial Blood Methemoglobin 0.4 0.0-1.5 % Isaiah Test Yes Blood Gas Total Hemoglobin 16.50 13.5-17.5 g/dL Blood Gas Liter Flow 5.00 Blood Gas Modality Nasal cannula FiO2 % 40.0 Blood Gas Critical Value Read Back Yes Blood Gas Notified Whom adele Kim md. Blood Gas Notified Time [id number] Blood Gas Notified By zhane Sigala rt. Blood Gas Spontaneous Rate 21 Blood Gas EPAP 6 Blood Gas IPAP 20 White Blood Count 13.1 H 4.4-10.8 10^3/uL Red Blood Count 4.81 4.5-5.90 10^6/uL Hemoglobin 15.7 13.5-17.5 g/dL Hematocrit 47.1 41.0-53.0 % Mean Corpuscular Volume 97.9 80.0-100.0 fL Mean Corpuscular Hemoglobin 32.5 H 28.0-32.0 pg Mean Corpuscular Hemoglobin Concent 33.2 32.0-36.0 g/dL Red Cell Distribution Width 13.4 11.8-14.3 % Platelet Count 289 140-450 10^3/uL Mean Platelet Volume 8.1 6.9-10.8 fL Neutrophils (%) (Auto) 87.5 H 37.0-80.0 % Lymphocytes (%) (Auto) 6.4 L 10.0-50.0 % Monocytes (%) (Auto) 5.8 0.0-12.0 % Eosinophils (%) (Auto) 0.0 0.0-7.0 % Basophils (%) (Auto) 0.3 0.0-2.0 % Neutrophils # (Auto) 11.5 H 1.6-8.6 10 ^3/uL Lymphocytes # (Auto) 0.8 0.4-5.4 10 ^3/uL Monocytes # (Auto) 0.8 0-1.3 10 ^3/uL Eosinophils # (Auto) 0 0-0.8 10 ^3/uL Basophils # (Auto) 0 0-0.2 10 ^3/uL Nucleated Red Blood Cells 0.1 % Sodium Level 135 L 136-145 mmol/L Potassium Level 4.7 3.5-5.1 mmol/L Chloride Level 87 L 98-107 mmol/L Carbon Dioxide Level > 40 *H 20-31 mmol/L Anion Gap 7.79677 5-15 Blood Urea Nitrogen 19 9-23 mg/dL Creatinine 0.82 0.700-1.30 mg/dL Glomerular Filtration Rate Calc 93 >90 mL/min BUN/Creatinine Ratio 23.2 H 10.0-20.0 Serum Glucose 144 H 74-106 mg/dL Calcium Level 10.3 8.7-10.4 mg/dL Total Bilirubin 0.7 0.2-1.0 mg/dL Aspartate Amino Transferase (AST) 26 13-40 U/L Alanine Aminotransferase (ALT) 48 H 7-40 U/L Alkaline Phosphatase 102 46-116 U/L Total Protein 6.6 5.7-8.2 g/dL Albumin 4.1 3.2-4.8 g/dL Venous Blood pH 7.303 L 7.320-7.430 Venous Blood pCO2 at Patient Temp 63.7 *H 38.0-54.0 mmHg Venous Blood pO2 at Patient Temp 79.3 H 23.0-48.0 mmHg Venous Blood HCO3 30.9 H 22.0-29.0 mmol/L Venous Blood Base Excess 2.5 -2.0-3.0 mmol/L Blood Gas Set Respiration Rate 16.0 Test 07/14/24 08:30 07/14/24 05:20 07/14/24 05:12 07/14/24 00:18 Range/Units Blood Gas Spontaneous Tidal Volume 903 Lactic Acid Level 1.6 0.4-2.0 mmol/L Urine Color Yellow Yellow Urine Clarity Clear Clear Urine pH 5.5 5.0-9.0 Urine Specific [place] 1.029 1.001-1.035 Urine Protein 1+ H Negative Urine Ketones 2+ H Negative Urine Blood 3+ H Negative /uL Urine Nitrite Negative Negative Urine Bilirubin Negative Negative Urine Urobilinogen Normal Negative mg/dL Urine Leukocyte Esterase Negative Negative /uL Urine RBC 86 0 - 3 /hpf Urine WBC 3 0 - 3 /hpf Urine Squamous Epithelial Cells Few <5 /hpf Urine Bacteria None seen None Seen /hpf Urine Hyaline Casts Mod 0 - 2 /lpf Urine Granular Casts Few 0 /lpf Urine Mucus Few None Seen Urine Yeast (Budding) Occasional None Seen /hpf Urine Glucose Normal Normal mg/dL Urine Opiates Screen Neg NEGATIVE Urine Fentanyl Screen Neg NEGATIVE Urine Barbiturates Screen Neg NEGATIVE Urine Phencyclidine Screen Neg NEGATIVE Urine Amphetamines Screen Neg NEGATIVE Urine Benzodiazepines Screen Neg NEGATIVE Urine Cocaine Screen Neg NEGATIVE Urine Cannabinoids Screen Neg NEGATIVE Influenza Type A Antigen Negative Negative Influenza Type B Antigen Negative Negative SARS-CoV-2 Antigen (Rapid) Negative NEGATIVE Test 07/13/24 23:41 07/13/24 18:50 07/13/24 15:18 Range/Units Specimen Drawn By Dasha turpin bow repairer custom Troponin I High Sensitivity 12 </=54 ng/L B-Type Natriuretic Peptide 29.00 0-100 pg/mL Assessment Impression: Acute on chronic hypoxic respiratory failure Acute on chronic hypercarbic respiratory failure Dependence on supplemental oxygen AE COPD Sepsis Nicotine dependence Obesity BMI 30.3 Plan: Supplemental oxygen 4 LPM NC Titrate to keep O2 sats above 92%. Taper O2 as tolerated. Acetazolamide due to contraction alkalosis Continue bronchodilators. Continue antibiotics Steroids Monitor renal function. Monitor electrolytes. Supplement as necessary. Monitor ins and outs. Smoking cessation discussed for greater than 10 minutes Diet and lifestyle modifications for weight reduction Obesity - complicates all care GI/DVT prophylaxis. Prognosis: Poor given patient's multiple co-morbidities. Rest of plan per hospitalist and other consultants. Thank you, Dr. Kim, for allowing me to participate in this patient's care. Further recommendations will depend on the patient's clinical course. Please do not hesitate to contact me if you have any questions or concerns. This medical document was created using an electronic medical record system with [employer] computerized dictation system. Although these documentations are being carefully reviewed, there may still be some phonetic and typographical changes. The errors are purely typographical, due to imperfection on the software program, and do not reflect any compromise in the patient's medical care. Plan discussed with: Patient, Other (SHANIQUA Rock/MD Kim) CALE BRADY MD Jul 20, 2024 23:34
[2024-07-21] VITALS (21 sets, daily range): BP systolic 122–138; BP diastolic 68–80; PULSE 95–120; RESP 16–23; TEMP 97.5–98.7; O2SAT 90–99
--- NOTE | 2024-07-21 07:15 | DVH ---
CLINICAL INFORMATION: 74 years old, Male; follow-up on acute respiratory failure. TECHNIQUE: Single AP portable chest radiograph was obtained. COMPARISON: XY CHEST XRAY 1 VIEW on DOS: 07/20/24, XY CHEST PORTABLE on DOS: 07/16/24, XY CHEST XRAY 1 EW on DOS: 07/14/24 FINDINGS: Mild atelectasis in the lung bases. No focal consolidation. No pneumothorax or pleural effusion. No o ther significant interval change. IMPRESSION: No significant interval change as detailed above.
[2024-07-21 07:32] LABS: Anion Gap 5 (5-15); Calcium 9.8 mg/dL (8.7-10.4)
[2024-07-21 07:37] LABS: BUN/Creatinine Ratio 22.8 (10.0-20.0)
[2024-07-21 07:44] LABS: Blood Urea Nitrogen 23 mg/dL (9-23); Carbon Dioxide 37 mmol/L (20-31); Chloride 93 mmol/L (98-107); Glucose 145 mg/dL (74-106); Sodium 135 mmol/L (136-145)
[2024-07-21 07:46] LABS: Basophils # (auto) 0.1 10 ^3/uL (0-0.2); Basophils % (auto) 0.6 % (0.0-2.0); Eosinophils # (auto) 0 10 ^3/uL (0-0.8); Hematocrit 46.9 % (41.0-53.0); Hemoglobin 15.6 g/dL (13.5-17.5); Lymphocytes # (auto) 1.1 10 ^3/uL (0.4-5.4); Lymphocytes % (auto) 8.1 % (10.0-50.0); Mean Corpuscular Hemoglobin 32.9 pg (28.0-32.0); Mean Corpuscular Hgb Conc. 33.4 g/dL (32.0-36.0); Mean Corpuscular Volume 98.7 fL (80.0-100.0); Neutrophils # (auto) 11.7 10 ^3/uL (1.6-8.6); Neutrophils % (auto) 84.3 % (37.0-80.0); Nucleated Red Blood Cells % 0.1 %; Platelet Count (auto) 285 10^3/uL (140-450); Red Blood Cells 4.75 10^6/uL (4.5-5.90); White Blood Cell 13.8 10^3/uL (4.4-10.8)
[2024-07-21] MEDS: acetaZOLAMIDE SODIUM 500 MG VL IV ONE (08:30)
[2024-07-21 09:26] LABS: Base Excess 10.5 mmol/L (-2.0-3.0)
--- NOTE | 2024-07-21 13:22 | DVHPN2 ---
Progress Note Date Seen: Jul 21, 2024 Medical Necessity Reason Pt with a Central, PICC or Fol: No Subjective Patient reports: No new complaints Review of Systems: HEENT:Normal, CVS:Normal, RESPIRATORY:Normal, GI:Normal, :Normal, MSK:Normal, NEURO:Normal Objective vital signs Vital Sign Date Time Temp Pulse Resp B/P (MAP) Pulse Ox O2 Delivery O2 Flow Rate FiO2 07/21/24 10:32 109 18 98 07/21/24 10:26 Oxymizer 6.0 07/21/24 10:26 N/A 07/21/24 09:00 97.9 128/68 (88) 97.9 Total Intake and Output 07/20/24 07/20/24 07/21/24 15:00 23:00 07:00 Intake Total 150 ml 1200 ml 925 ml Output Total 800 ml Balance 150 ml 400 ml 925 ml medications Current Medications Medications Dose Ordered Sig/Grace Route Start Time Stop Time Status Last Admin Dose Admin Ipratropium [place] 0.5 mg Q4HR NEB 07/14/24 02:00 07/21/24 10:26 0.5 MG Levofloxacin/ Dextrose 150 ml @ 100 mls/hr DAILY IV 07/14/24 10:00 07/21/24 09:21 100 MLS/HR Oxycodone/ Acetaminophen 1 tab Q4HP PRN PO 07/14/24 02:00 07/19/24 21:01 1 TAB Duloxetine HCl 30 mg DAILY PO 07/14/24 10:00 07/21/24 09:23 30 MG Atorvastatin Calcium 40 mg HS PO 07/14/24 22:00 07/20/24 22:00 40 MG Hydralazine HCl 10 mg Q6HP PRN IV 07/14/24 02:00 Enoxaparin Sodium 40 mg DAILY SC 07/14/24 10:00 07/21/24 09:23 40 MG Lorazepam 0.5 mg Q8HP PRN IV 07/14/24 13:15 07/19/24 21:37 0.5 MG Methylprednisolone Sodium Succinate 40 mg Q8HR IV 07/14/24 22:00 07/21/24 05:26 40 MG Aspirin 81 mg DAILY PO 07/15/24 10:00 07/21/24 09:24 81 MG Pantoprazole Sodium 40 mg DAILY IV 07/15/24 10:00 07/21/24 09:21 40 MG Melatonin 10 mg HS PO 07/15/24 22:00 07/20/24 21:59 10 MG Budesonide 0.5 mg BID NEB 07/15/24 22:00 07/21/24 06:02 0.5 MG Levalbuterol HCl 1.25 mg Q4HR NEB 07/16/24 10:00 07/21/24 10:26 1.25 MG Examination: GENERAL:Normal, HEENT:Normal, NECK:Normal, LUNGS:Normal, LUNGS:Abnormal (on oxygen), CVS:Normal, ABDOMEN:Normal, MSK:Normal, SKIN:Normal, NEURO:Normal, :Normal laboratory and microbiology Laboratory Tests 07/21/24 06:22 Test 07/21/24 06:22 Range/Units Serum Glucose 145 H 74-106 mg/dL Problem List/Assessment/Plan Problem List/Assessment/Plan #1 acute resp failure: bipap , monitor blood gases #2 copd with exacerbation: steroids, bronchodilators #3 ?pneumonia- gram positive/neg: levaquin #4 htn #5 tobacco abuse: advised to quit, refused nicotine patch- time spent 11 mins #6 cad s/p stent #7 hyperlipidemia long discussion with daughter Kellee- [facility] advanced care planning - full code- time spent 19 mins Plan discussed with: Patient Date of Service: Jul 21, 2024 Billing Provider: NOA BROWN MD Common Visit Codes: [id number] INP/OBS CARE(HIGH) Secondary Visit Codes: [id number] CARE PLAN 30 MINUTES NOA BROWN MD Jul 21, 2024 13:22
[2024-07-22] VITALS (13 sets, daily range): BP systolic 117–139; BP diastolic 61–74; PULSE 82–111; RESP 18–23; TEMP 97.5–97.8; O2SAT 90–97
[2024-07-22] MEDS: PANTOPRAZOLE 40 MG TAB PO SCH (05:02)
[2024-07-22] MEDS: predniSONE 20 MG TAB PO SCH (10:39)
[2024-07-22] MEDS: levoFLOXacin 500 MG TAB PO SCH (10:39)
--- NOTE | 2024-07-22 14:10 | DVHDS2 ---
Discharge Summary Date of Admission Jul 13, 2024 at 22:52 Date of Discharge: Jul 22, 2024 Labs/Diagnostic Data: Laboratory Results Test 07/21/24 09:12 07/21/24 06:22 07/20/24 16:28 07/20/24 06:52 Blood Gas Specimen Type Arterial Blood Gas Sample Site Right radial Blood Gas Patient Temperature 37.0 Arterial Blood Date Drawn [id number] Arterial Blood pH 7.345 (7.350-7.450) Arterial Blood Partial Pressure CO2 74.9 mmHg (35.0-48.0) Arterial Blood Partial Pressure O2 50.4 mmHg (83.0-108.0) Arterial Blood HCO3 40.0 mmol/L (21.0-28.0) Arterial Blood Oxygen Saturation 85.3 % (94.0-98.0) Arterial Blood Base Excess 10.5 mmol/L (-2.0-3.0) Arterial Blood Oxyhemoglobin 84.1 % (94.0-98.0) Arterial Blood Carboxyhemoglobin 1.1 % (0.5-1.5) Arterial Blood Methemoglobin 0.3 % (0.0-1.5) Isaiah Test Yes Blood Gas Total Hemoglobin 16.00 g/dL (13.5-17.5) Blood Gas Modality Room air FiO2 % 64.0 Blood Gas Critical Value Read Back Yes Blood Gas Notified Whom Kelly amador md Blood Gas Notified Time [id number] Blood Gas Notified By Abhishek oliva rrt White Blood Count 13.8 10^3/uL (4.4-10.8) Red Blood Count 4.75 10^6/uL (4.5-5.90) Hemoglobin 15.6 g/dL (13.5-17.5) Hematocrit 46.9 % (41.0-53.0) Mean Corpuscular Volume 98.7 fL (80.0-100.0) Mean Corpuscular Hemoglobin 32.9 pg (28.0-32.0) Mean Corpuscular Hemoglobin Concent 33.4 g/dL (32.0-36.0) Red Cell Distribution Width 13.0 % (11.8-14.3) Platelet Count 285 10^3/uL (140-450) Mean Platelet Volume 8.0 fL (6.9-10.8) Neutrophils (%) (Auto) 84.3 % (37.0-80.0) Lymphocytes (%) (Auto) 8.1 % (10.0-50.0) Monocytes (%) (Auto) 7.0 % (0.0-12.0) Eosinophils (%) (Auto) 0.0 % (0.0-7.0) Basophils (%) (Auto) 0.6 % (0.0-2.0) Neutrophils # (Auto) 11.7 10 ^3/uL (1.6-8.6) Lymphocytes # (Auto) 1.1 10 ^3/uL (0.4-5.4) Monocytes # (Auto) 1.0 10 ^3/uL (0-1.3) Eosinophils # (Auto) 0 10 ^3/uL (0-0.8) Basophils # (Auto) 0.1 10 ^3/uL (0-0.2) Nucleated Red Blood Cells 0.1 % Sodium Level 135 mmol/L (136-145) Potassium Level 5.0 mmol/L (3.5-5.1) Chloride Level 93 mmol/L (98-107) Carbon Dioxide Level 37 mmol/L (20-31) Anion Gap 5 (5-15) Blood Urea Nitrogen 23 mg/dL (9-23) Creatinine 1.01 mg/dL (0.700-1.30) Glomerular Filtration Rate Calc 79 mL/min (>90) BUN/Creatinine Ratio 22.8 (10.0-20.0) Serum Glucose 145 mg/dL (74-106) Calcium Level 9.8 mg/dL (8.7-10.4) Blood Gas Liter Flow 5.00 Blood Gas Spontaneous Rate 21 Blood Gas EPAP 6 Blood Gas IPAP 20 Test 07/20/24 06:50 07/15/24 06:10 07/14/24 08:30 07/14/24 05:20 Total Bilirubin 0.7 mg/dL (0.2-1.0) Aspartate Amino Transferase (AST) 26 U/L (13-40) Alanine Aminotransferase (ALT) 48 U/L (7-40) Alkaline Phosphatase 102 U/L (46-116) Total Protein 6.6 g/dL (5.7-8.2) Albumin 4.1 g/dL (3.2-4.8) Venous Blood pH 7.303 (7.320-7.430) Venous Blood pCO2 at Patient Temp 63.7 mmHg (38.0-54.0) Venous Blood pO2 at Patient Temp 79.3 mmHg (23.0-48.0) Venous Blood HCO3 30.9 mmol/L (22.0-29.0) Venous Blood Base Excess 2.5 mmol/L (-2.0-3.0) Blood Gas Set Respiration Rate 16.0 Blood Gas Spontaneous Tidal Volume 903 Lactic Acid Level 1.6 mmol/L (0.4-2.0) Test 07/14/24 05:12 07/14/24 00:18 07/13/24 23:41 07/13/24 18:50 Urine Color Yellow (Yellow) Urine Clarity Clear (Clear) Urine pH 5.5 (5.0-9.0) Urine Specific [place] 1.029 (1.001-1.035) Urine Protein 1+ (Negative) Urine Ketones 2+ (Negative) Urine Blood 3+ /uL (Negative) Urine Nitrite Negative (Negative) Urine Bilirubin Negative (Negative) Urine Urobilinogen Normal mg/dL (Negative) Urine Leukocyte Esterase Negative /uL (Negative) Urine RBC 86 /hpf (0 - 3) Urine WBC 3 /hpf (0 - 3) Urine Squamous Epithelial Cells Few /hpf (<5) Urine Bacteria None seen /hpf (None Seen) Urine Hyaline Casts Mod /lpf (0 - 2) Urine Granular Casts Few /lpf (0) Urine Mucus Few (None Seen) Urine Yeast (Budding) Occasional /hpf (None Urine Glucose Normal mg/dL (Normal) Urine Opiates Screen Neg (NEGATIVE) Urine Fentanyl Screen Neg (NEGATIVE) Urine Barbiturates Screen Neg (NEGATIVE) Urine Phencyclidine Screen Neg (NEGATIVE) Urine Amphetamines Screen Neg (NEGATIVE) Urine Benzodiazepines Screen Neg (NEGATIVE) Urine Cocaine Screen Neg (NEGATIVE) Urine Cannabinoids Screen Neg (NEGATIVE) Influenza Type A Antigen Negative (Negative) Influenza Type B Antigen Negative (Negative) SARS-CoV-2 Antigen (Rapid) Negative (NEGATIVE) Specimen Drawn By Dasha turpin capsule filler Troponin I High Sensitivity 12 ng/L (</=54) Test 07/13/24 15:18 B-Type Natriuretic Peptide 29.00 pg/mL (0-100) Other Laboratory Tests 07/21/24 06:22 Brief Hx & Hospital Course: SEE DICTATED NOTE Condition at Discharge: Fair Final Diagnosis/Problems List copd Discharge Disposition: Hospice - Home Discharge Instruct/Medications Diet: Cardiac 2g Na,low cholest Activity: No Restrictions, As Tolerated Follow Up/Referral: fu with [facility] Medications: per sep Discharge Statement: "Patient was advised to return to the ER or call 911 if any headaches, dizziness, shortness of breath, chest pain, abdominal pain, bleeding, fevers, or worsening of medical condition. Patient was counseled about treatment plan, medications, possible side effects, patientverbalized understanding. All questions were answered to the best of my ability. This discharge took greater then 30 minutes in planning, reviewing documentation, counseling the patient, and discussing with other team members." ASSESSMENT ASSESSMENT Assessment copd Date of Service: Jul 22, 2024 Billing Provider: NOA BROWN MD Common Visit Codes: 48096-TIQ/OBS DISCH DAY >30min NOA BROWN MD Jul 22, 2024 14:10
--- NOTE | 2024-07-22 16:18 | DVHDS ---
DATE OF DISCHARGE: 07/22/2024 HISTORY OF PRESENT ILLNESS: The patient is a 74-year-old gentleman who was admitted with history of increasing shortness of breath and has history of COPD, osteoarthritis, chronic pain and coronary artery disease with PTCA. HOSPITAL COURSE: The patient had a chest x-ray that showed evidence of bibasilar atelectasis. The patient had an acute on chronic respiratory failure requiring use of BiPAP. The patient's CO2 was elevated. The patient was placed on antibiotics along with steroids. His influenza and COVID tests were negative. The patient is now improved. As per my discussion with him and his daughter, Ivette, they wished to be discharged on hospice. The patient will be discharged in hospice with medications as per hospice. He will follow up with the hospice physician. FINAL DIAGNOSES: Therefore: * Acute on chronic respiratory failure. * Chronic obstructive pulmonary disease exacerbation. * Questionable pneumonia, gram-positive, gram-negative. * Hypertension. * Tobacco abuse. * Coronary artery disease with stent. * Hyperlipidemia. * Obesity. * Hospice care. Time spent in discharge planning and review of plan with patient, nursing and social service assistant was 41 minutes. MD RUDI Tanner/JEANETTE TID: [id number] RECEIPT: [id number]
--- NOTE | 2024-07-23 07:01 | ECG ---
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
== END 2024-07-22 15:39 | disposition hospice, home (50) | DRG 177 ==
LOC: EDBD 14:11 → ER 14:11 → TELE 22:52 → TELE-WESTW 07-16 16:03
PROVIDERS: ATTEND Internal Medicine
PROC: 5A09357 Assistance with Respiratory Ventilation, Less than 24 Consecutive Hours, Continuous Positive Airway Pressure (ICD-10-PCS; principal; 2024-07-13)
PROC: 5A09357 Assistance with Respiratory Ventilation, Less than 24 Consecutive Hours, Continuous Positive Airway Pressure (ICD-10-PCS; 2024-07-14)
PROC: 5A09357 Assistance with Respiratory Ventilation, Less than 24 Consecutive Hours, Continuous Positive Airway Pressure (ICD-10-PCS; 2024-07-15)
PROC: 5A09357 Assistance with Respiratory Ventilation, Less than 24 Consecutive Hours, Continuous Positive Airway Pressure (ICD-10-PCS; 2024-07-16)
PROC: 5A09357 Assistance with Respiratory Ventilation, Less than 24 Consecutive Hours, Continuous Positive Airway Pressure (ICD-10-PCS; 2024-07-17)
PROC: 5A09357 Assistance with Respiratory Ventilation, Less than 24 Consecutive Hours, Continuous Positive Airway Pressure (ICD-10-PCS; 2024-07-19)
PROC: 5A09357 Assistance with Respiratory Ventilation, Less than 24 Consecutive Hours, Continuous Positive Airway Pressure (ICD-10-PCS; 2024-07-20)
DX: J15.69 Pneumonia due to other Gram-negative bacteria (principal); J96.21 Acute and chronic respiratory failure with hypoxia; J96.22 Acute and chronic respiratory failure with hypercapnia; J44.1 Chronic obstructive pulmonary disease with (acute) exacerbation; J44.0 Chronic obstructive pulmonary disease with (acute) lower respiratory infection; J15.9 Unspecified bacterial pneumonia; F41.9 Anxiety disorder, unspecified; Z20.822 Contact with and (suspected) exposure to COVID-19; I10 Essential (primary) hypertension; G89.4 Chronic pain syndrome; F17.210 Nicotine dependence, cigarettes, uncomplicated; I25.10 Atherosclerotic heart disease of native coronary artery without angina pectoris; E78.5 Hyperlipidemia, unspecified; E66.9 Obesity, unspecified; E88.810 Metabolic syndrome; Z95.5 Presence of coronary angioplasty implant and graft; Z88.6 Allergy status to analgesic agent; Z79.1 Long term (current) use of non-steroidal anti-inflammatories (NSAID); Z79.899 Other long term (current) drug therapy; I25.2 Old myocardial infarction; Z83.3 Family history of diabetes mellitus; Z99.81 Dependence on supplemental oxygen; Z51.5 Encounter for palliative care; Z79.82 Long term (current) use of aspirin; Z68.30 Body mass index [BMI] 30.0-30.9, adult
CPT/HCPCS: 36415; 36600; 71045; 80048; 80053; 80307; 81001; 82805; 83605; 83880; 84484; 85025; 87426; 87804; 93005; 93306; 94640; 94660; 99291; G0378; J1885; J1956; J2405; J2470